=== PATIENT | female | born 1945 | race Caucasian/White ===

== ENCOUNTER 2016-12-03 09:11 | Emergency (ER) | payer BC ==
[2016-12-03 09:41] LABS: Urine Bilirubin Negative (NEGATIVE); Urine Blood Negative /ul (NEGATIVE); Urine Ketone Negative (NEGATIVE); Urine Nitrite Negative (NEGATIVE); Urine Protein 30 mg/dL (NEGATIVE); Urine Specific Gravity >=1.030 SP.GR. (1.005-1.010); Urine Urobilinogen Normal (NORMAL); Urine pH 5.5 pH (5.0-7.0)
[2016-12-03] MEDS ORDERED: ONDANSETRON HCL/PF 2 MG/ML VIAL IV ONE (09:42)
[2016-12-03] MEDS ORDERED: HYDROmorphone HCL 1 MG/ML DISP.SYRIN IV ONE (09:42)
--- NOTE | 2016-12-03 09:44 | ERNOTE ---
Abdominal HPI - Narrative Date of Service: 12/03/16 - General Chief Complaint: Back Pain Time Seen by Provider: 12/03/16 09:18 Source: patient Exam Limitations: no limitations - Immun/Allergies/Home Medications Allergies/Adverse Reactions: Allergies No Known Allergies Allergy (Verified 12/03/16 09:23) Home Medications: HOME MEDICATIONS Ca Cmb No.1/Vit D3/B-6/FA/B12 [Vitamin D3 1,000 Unit Tablet] 2 each PO DAILY 11/08 [Last Taken Unknown] Calcium Carb/Vit D3/Minerals [Calcium 1,200 mg Tablet Chew] 1 tab PO DAILY 09/27 [Last Taken Unknown] Pyridoxine HCl [Vitamin B-6] 200 mg PO DAILY 09/27/12 [Last Taken Unknown] Ascorbic Acid [Vitamin C] 1 tab PO DAILY #0 10/05/12 [Last Taken Unknown] Levothyroxine Sodium [Synthroid] 125 mcg PO QAM #0 tablet 10/05/12 [Last Taken Unknown] Polyvinyl Alcohol [Artificial Tears] 0 ml EACHEYE Q1H PRN #0 btl 10/05/12 [Last Taken Unknown] Cyclobenzaprine HCl [Flexeril] 5 mg PO TID PRN #12 tablet 12/03/16 [Last Taken Unknown] Ibuprofen [Motrin] 400 mg PO Q6H PRN #30 tab 12/03/16 [Last Taken Unknown] Magnesium Citrate 296 ml PO NOW #1 solution 12/03/16 [Last Taken Unknown] - Pain Score Pain Score #1 Pain Score: 7 - moderate to severe - History of Present Illness Narrative: 71-year-old white female complains of back pain/abdominal pain. Patient states her pain began about 1 week ago. She feels pain in both her mid and low back as well as her abdomen. She has loss of appetite. No vomiting diarrhea. No constipation. No hematuria. She was seen and evaluated and a primary care physician's office last Tuesday. She states she was told by the physician that she probably had a kidney stone. She states her urine did not show any abnormalities. The pain had improved with pain medication. Then the pain became again severe last night. There times and she has lower abdominal pain with it. No dysuria, urinary urgency or frequency. The pain as moderate severe. No history of kidney stones Review of Systems - Review of Systems Constitutional: Present: no symptoms reported. Absent: fever, chills EYE: Present: no symptoms reported ENT: Present: no symptoms reported Respiratory: Present: no symptoms reported. Absent: shortness of breath, cough , wheezing Cardiology: Present: no symptoms reported. Absent: chest pain, palpitations, edema Gastrointestinal/Abdominal: Present: abdominal pain, eating less, drinking less. Absent: nausea, vomiting, diarrhea, constipation Genitourinary: Present: no symptoms reported, See HPI. Absent: frequency, pain , dysuria, hematuria, decreased urinary output, discharge Musculoskeletal: Present: no symptoms reported Skin: Present: no symptoms reported Neurological: Present: no symptoms reported Endocrine: Present: no symptoms reported All Other Systems: All systems neg except as marked - Patient's Past Medical History Patient History - Medical: Hypothyroidism Patient History - Cardiac/Respiratory: No pertinent hx Patient History - Cancer: No Hx of Cancer Patient History - Surgical Procedures: Total Hip Replacement Patient History - Other: None - Social History Living Situations: home Psych History: No pertinent hx Physical Exam - Physical Exam General Appearance: Present: wd/wn, alert, no apparent distress Ears, Nose, Throat: Present: normal ENT inspection Neck: Present: normal inspection, nontender Respiratory: Present: no respiratory distress, normal breath sounds, no accessory muscle use, chest nontender, lungs clear Cardiovascular/Chest: Present: regular rate, rhythm, no murmur, normal peripheral pulses Gastrointestinal/Abdominal: Present: normal bowel sounds, tenderness, other - slight tenderness lower abdomen. Absent: distended, guarding, rebound Rectal Exam: Present: nontender, normal rectal tone. Absent: black stool, blood -streaked stool, fecal impaction, hemorrhoids Back Exam: Present: other - in with range of motion in the mid and low back. Extremity Exam: Present: normal inspection, no edema Neurological Exam: Present: alert, oriented, normal mood/affect, no motor/ sensory deficits Skin Exam: Present: normal color, warm/dry ED Progress - Results and Orders Patient's Lab Results:: I have reviewed the patient's lab results. - Vital Signs Patient's Vital Signs:: I have reviewed the patient's vital signs. Vital Signs: Vital Signs 12/03/16 09:17 Temperature 36.3 C L Pulse Rate 94 Respiratory 12 Rate Blood Pressure 124/58 O2 Sat by Pulse 98 Oximetry - CT/Ultrasound CT/Ultrasound Narrative: Reviewed CT scan as well as radiology report. - Progress/Reassessment Chief Complaint: Back Pain Progress:: Improved - Dilaudid IV given. Good relief of pain Plan - Plan Plan: Patient has other nonspecific findings on CT scan. There is discussion of panniculitis versus mesenteric gesture in. There is mesenteric nodes which could be indicative of mesenteric adenitis. I did discuss the case with our general surgeon informatics application analyst . He has reviewed the case and the CT findings. The appendix is slightly enlarged. There are no other associated findings to suggest appendicitis. Clinically do not think she has. However she was advised to return here if any time she develops focal pain or worsening. She did have a pulmonary nodule measured at 3 mm which will need to be further evaluated according to fleishner criteria per primary care physician. She has been taking some antacids which were demonstrated in her rectum on CT scan. She feels she slightly constipated. I will have her take one bottle of magnesium citrate when she gets home this morning. I discussed all this with her and she verbalizes understanding. Departure - Departure Clinical Impression: Back pain, Abdominal pain Disposition: Home self-care Condition: Stable Additional Instructions: Return to emergency department if at any time there is worsening of the pain, bloody stools, fever, vomiting or other problems. Otherwise follow-up with primary care physician. Will need outpatient follow-up for the pulmonary nodule. Follow-up with primary care physician on Tuesday. Referrals: Danii Canela MD [Primary Care Provider] - Prescriptions: Cyclobenzaprine HCl [Flexeril] 5 mg PO TID PRN #12 tablet PRN Reason: Pain Ibuprofen [Motrin] 400 mg PO Q6H PRN #30 tab PRN Reason: Pain Magnesium Citrate 296 ml PO NOW #1 solution
[2016-12-03] MEDS ORDERED: ONDANSETRON HCL/PF 2 MG/ML VIAL ONE (09:45)
[2016-12-03] MEDS ORDERED: HYDROmorphone HCL 1 MG/ML DISP.SYRIN ONE (09:45)
[2016-12-03 09:50] LABS: Urine Amorphous Sediment Many - 3+ (NONE-FEW); Urine Appearance Clear; Urine Bacteria TRACE; Urine Color Yellow; Urine RBC TRACE /hpf (0-5); Urine WBC TRACE /hpf (0-5)
[2016-12-03 09:55] LABS: Hematocrit 34.3 % (37.0-47.0); Hemoglobin 11.5 gm/dL (12.5-16.0); Mean Cell Volume 94.5 fl (78-100); Mean Corpuscular Hemoglobin 31.7 pg (27-31); Mean Corpuscular Hgb Conc 33.5 g/dl (32-36); Mean Platelet Volume 9.4 fl (6.0-9.5); Neutrophil # 5.8 K/mm3 (1.3-6.0); Neutrophil % 80.3 % (42-75.0); Platelet Count 240 K/mm3 (150-450); Red Blood Count 3.63 M/mm3 (4.2-5.4); Red Cell Distribution Width 11.4 % (11.5-14.0); White Blood Count 7.3 K/mm3 (4.0-10.5)
[2016-12-03 10:12] LABS: Albumin * 3.6 gm/dl (3.4-5.0); Anion Gap 14.5 mmol/L (6.8-13.8); BUN/Creatinine Ratio 18.8 (9.0-21.6); Bilirubin, Total 0.6 mg/dL (0.0-1.1); Ca. Corrected For Albumin 8.8 mg/dL (8.4-10.2); Calcium * 8.8 mg/dL (7.9-10.9); Carbon Dioxide 25.6 mmol/L (24-32.6); Potassium 4.1 mmol/L (3.4-4.6); Total Protein 7.5 gm/dL (6.2-8.2)
--- OUTSIDE RECORDS SUMMARY | 2016-12-03 10:14 | XMS REPORT | Continuity of Care Document ---
:1945 Author Organization [facility] ([facility]) Address [address] [place] [address] Phone [phone] Care Team Providers Name Role Phone Provider, No-Primary Care Primary Care Provider Unavailable Source Comments This disclosure is being made pursuant to the Care Everywhere program, applicable federal and state laws, and may not contain all informaitonavailable regarding this patient.[facility] ([facility]) Active Allergies and Adverse Reactions Not on File Current Medications Not on file Active Problems Not on file Social History Tobacco Use Types Packs/Day Years Used Date Never Assessed Plan of Care Health Maintenance Due Date Last Done Comments HCV Screening 1945 Hepatitis B Vaccine (1 of 3 - Primary Series) 1945 Tdap Vaccine 1956 Lipid Disorder Screening 1963 Td Vaccine 1963 Mammogram 1985 Colonoscopy 1995 Zoster Vaccine 2005 Osteoporosis Screening (DXA Bone Density) 2010 Pneumococcal Vaccine (1 of 2 - PCV13) 2010 Influenza Vaccine: Seasonal (#1) 04/26/2016 Results from Last 3 Months Not on file
[2016-12-03 11:53] VITALS: BP 94/56
== END 2016-12-03 12:22 | disposition home or self-care (01) ==
LOC: ER 09:11
DX: R10.9 Unspecified abdominal pain (principal); M54.9 Dorsalgia, unspecified; E03.9 Hypothyroidism, unspecified

== ENCOUNTER 2017-01-31 07:56 | Emergency (ER) | payer BC ==
--- OUTSIDE RECORDS SUMMARY | 2017-01-31 08:16 | XMS REPORT | Continuity of Care Document ---
:1945 Author Organization [facility] ([facility]) Address [address] [place] [address] Phone [phone] Care Team Providers Name Role Phone Provider, No-Primary Care Primary Care Provider Unavailable Source Comments This disclosure is being made pursuant to the Care Everywhere program, applicable federal and state laws, and may not contain all informaitonavailable regarding this patient.[facility] ([facility]) Active Allergies and Adverse Reactions Not [...]
[2017-01-31] MEDS ORDERED: oxyCODONE HCL/ACETAMINOPHEN 1 TAB TABLET PO ONE (08:56)
[2017-01-31 09:08] VITALS: BP 134/84
--- NOTE | 2017-01-31 09:11 | ERNOTE ---
Lower Extremity HPI - Narrative Date of Service: 01/31/17 - General Lower Extremities Pain: ankle: left Time Seen by Provider: 01/31/17 08:04 Source: patient Exam Limitations: no limitations - Immun/Allergies/Home Medications Allergies/Adverse Reactions: Allergies Allergy/AdvReac Type Severity Reaction Status Date / Time codeine Allergy Verified 01/31/17 08:03 Home Medications: HOME MEDICATIONS Ca Cmb No.1/Vit D3/B-6/FA/B12 [Vitamin D3 1,000 Unit Tablet] 2 each PO DAILY 11/08 [Last Taken Unknown] Calcium Carb/Vit D3/Minerals [Calcium 1,200 mg Tablet Chew] 1 tab PO DAILY 09/27 [Last Taken Unknown] Pyridoxine HCl [Vitamin B-6] 200 mg PO DAILY 09/27/12 [Last Taken Unknown] Ascorbic Acid [Vitamin C] 1 tab PO DAILY #0 10/05/12 [Last Taken Unknown] Levothyroxine Sodium [Synthroid] 125 mcg PO QAM #0 tablet 10/05/12 [Last Taken Unknown] Polyvinyl Alcohol [Artificial Tears] 0 ml EACHEYE Q1H PRN #0 btl 10/05/12 [Last Taken Unknown] Cyclobenzaprine HCl [Flexeril] 5 mg PO TID PRN #12 tablet 12/03/16 [Last Taken Unknown] Ibuprofen [Motrin] 400 mg PO Q6H PRN #30 tab 12/03/16 [Last Taken Unknown] Magnesium Citrate 296 ml PO NOW #1 solution 12/03/16 [Last Taken Unknown] oxyCODONE HCL/ACETAMINOPHEN [Percocet 5 MG/325 MG] 1 tab PO Q8H PRN #12 tablet 01/31/17 [Last Taken Unknown] - History of Present Illness Narrative: Patient presents to the ED for an ankle and foot injury. She relates that she had a spade fall and hit the dorsum of her ankle/foot yesterday. She has immediate pain here and swelling. The pain has worsened since yesterday and she feels like she cannot put any weight on it. No fevers. It hurts to move her ankle and toes. No other injuries. Relates she cannot bear weight as the pain is too bad. With rest pain better, sever with weight bearing. Occurred: yesterday Location of Incident: home Method of Injury: Reports: direct blow Modifying Factors - (Improves): Reports: rest Modifying Factors - (Worsens): Reports: movement, other - weight bearing Associated Symptoms: Reports: unable to bear weight. Denies: other injuries Other Injuries: Reports: none Subsequent Symptoms: Reports: other - hurts to move ankle and toes. Prior Treament: Denies: recently seen Review of Systems - Review of Systems Constitutional: Absent: fever Musculoskeletal: Present: See HPI Skin: Present: other - bruie, no laceration. Absent: rash Neurological: Present: other - toe numbness. - Patient's Past Medical History Patient History - Medical: Hypothyroidism Patient History - Cardiac/Respiratory: No pertinent hx Patient History - Cancer: No Hx of Cancer Patient History - Surgical Procedures: Total Hip Replacement Patient History - Other: None - Social History Living Situations: home Psych History: No pertinent hx Alcohol Use: none Drug Use: none Physical Exam - Physical Exam General Appearance: Present: alert, no apparent distress Respiratory: Present: no respiratory distress, lungs clear Cardiovascular/Chest: Present: regular rate, rhythm, normal peripheral pulses Peripheral Pulses: N=norm/S=strong/W=weak/B=bound/A=absent: Dorsalis-pedis (L): Normal Extremity Exam: Present: other - There is a bruise anterior left ankle. THer is swelling around this area. There is no suggestion of cellulitis or joint infection. There is pain distal tib fib, diffuse ankle and entire proximal foot. No gross instablility. Pain limits exam but no clear Achilles deficit. DP pulse noted. LT sensation is present. Motor exam difficult d/t pain. No compartment syndrome noted. There is a bruise present where she indicated the spade struck her foot/ankle. Neurological Exam: Present: other - Sensation to LT intact. Motor and tendon exam limited by pain but no clear acute gross deficits noted. Skin Exam: Present: warm/dry, other - no findings of cellulitis infection ED Progress - Vital Signs Patient's Vital Signs:: I have reviewed the patient's vital signs. Vital Signs: Vital Signs 01/31/17 08:00 Temperature 37.4 C Pulse Rate 86 Respiratory 12 Rate Blood Pressure 116/42 O2 Sat by Pulse 100 Oximetry - X-Ray X-Ray #1 X-Ray: foot Interpretation: Reviewed by me X-ray Comments: I reviewed images and official radiology report X-Ray #2 X-Ray: ankle Interpretation: Reviewed by me X-ray Comments: I reviewed images as well as official x-ray report - Progress/Reassessment Chief Complaint: Foot Injury/Pain Progress Note-Subjective: 01/31/17 09:04 I spoke with Chantel Solano who was on for ortho via nurse. Splint and office folllow -up recommended. She had traumatic injury yesterday that started her Sx. No fever. No compartment syndrome. No clear fracture. Nothing on exam would suggest cellulitis or septic arthritis. Clinically c/w local tissue injury from the imact of the spade. I discussed warning signs and reasons to return as well as the need for close f/u. 01/31/17 09:08 Patient states she can take percocet without difficulty. I informed her not to take Tramadol if taking percocet. Departure Clinical Impression: Ankle injury, Foot injury - Departure Disposition: Home self-care Condition: Stable Instructions: Cast or Splint Care, [id number] Additional Instructions: Follow-up with orthopedics as directed. Rest. Ice. Elevate. Splint for now. Return here for fever, increased pain, numbness, tingling, weakness or if your condition worsens or changes in any way. Do not take tramadol if taking Percocet. Referrals: Danii Canela MD [Primary Care Provider] - Prescriptions: oxyCODONE HCL/ACETAMINOPHEN [Percocet 5 MG/325 MG] 1 tab PO Q8H PRN #12 tablet PRN Reason: Pain
[2017-01-31] MEDS ORDERED: oxyCODONE HCL/ACETAMINOPHEN 1 TAB TABLET ONE (09:13)
== END 2017-01-31 09:22 | disposition home or self-care (01) ==
LOC: ER 07:56
PROC: 2W3TX1Z Immobilization of Left Foot using Splint (ICD-10-PCS; principal; 2017-01-31)
DX: M25.572 Pain in left ankle and joints of left foot (principal); X58.XXXA Exposure to other specified factors, initial encounter; Y93.9 Activity, unspecified; Y92.009 Unspecified place in unspecified non-institutional (private) residence as the place of occurrence of the external cause

== ENCOUNTER 2021-01-04 09:39 | Inpatient (IN) ==
[2021-01-04] MEDS ORDERED: NORMAL SALINE 1,000 ML IV ONE ×2 (09:51→12:52)
[2021-01-04] MEDS ORDERED: ACETAMINOPHEN 1,000 MG/100 ML BTL IV ONE (09:51)
[2021-01-04 10:07] LABS: Urine Bilirubin Negative (NEGATIVE); Urine Blood Negative /ul (NEGATIVE); Urine Ketone Negative (NEGATIVE); Urine Nitrite Negative (NEGATIVE); Urine Protein Negative (NEGATIVE); Urine Urobilinogen Normal (NORMAL)
[2021-01-04 10:14] LABS: Cocaine Ur Negative (NEGATIVE); Urine Barbiturate Negative (NEGATIVE); Urine Benzodiazepines Negative (NEGATIVE); Urine Opiates Negative (NEGATIVE); Urine PCP Negative (NEGATIVE)
[2021-01-04 10:17] LABS: Hematocrit 40.2 % (37.0-47.0); Mean Cell Volume 99.5 fl (78-100); Mean Corpuscular Hemoglobin 32.2 pg (27-31); Mean Corpuscular Hgb Conc 32.3 g/dl (32-36); Mean Platelet Volume 9.5 fl (8-12.5); Neutrophil # 4.8 K/mm3 (1.3-6.0); Neutrophil % 67.9 % (42-75.0); Platelet Count 244 K/mm3 (150-450); Red Blood Count 4.04 M/mm3 (4.2-5.4); Red Cell Distribution Width 12.2 % (11.5-14.0); White Blood Count 7.1 K/mm3 (4.0-10.5)
[2021-01-04 10:17] LABS: Urine THC Negative (NEGATIVE)
--- NOTE | 2021-01-04 10:18 | ERNOTE ---
Medical Problem HPI - Narrative Date of Service: 01/04/21 - General Chief Complaint: Altered Mental Status Time Seen by Provider: 01/04/21 09:47 Source: patient, family Exam Limitations: clinical condition - Immun/Allergies/Home Medications Allergies/Adverse Reactions: Allergies codeine Allergy (Verified 07/10/19 14:55) Home Medications: HOME MEDICATIONS Ca Cmb No.1/Vit D3/B-6/FA/B12 [Vitamin D3 1,000 Unit Tablet] 2 ea PO DAILY 09/27/12 [Last Taken Unknown] Calcium Carb/Vit D3/Minerals [Calcium 1,200 mg Tablet Chew] 1 tab PO DAILY 09/27/12 [Last Taken Unknown] Ascorbic Acid [Vitamin C] 1 tab PO DAILY #0 10/05/12 [Last Taken Unknown] Apixaban [Eliquis] 5 mg PO BID 01/04/21 [Last Taken Unknown] Levothyroxine Sodium [Synthroid] 150 mcg PO DAILY 01/04/21 [Last Taken Unknown] Meclizine HCl [Motion-Time] 25 mg PO TID 01/04/21 [Last Taken Unknown] Midodrine HCl 10 mg PO TID 01/04/21 [Last Taken Unknown] - History of Present History Narrative: Patient presents to the ED for altered mental status. She was last known normal last night. This am was confused and could not walk. Not herself at all. She denies any pain. Noted to have a fever here. Denies abdominal pain, cough, trouble breathing or other Sx. No headache, no apparent trauma. Has not had anything like this before. Timing: constant Severity: moderate Modifying Factors - (Improves): Present: other - nothing Modifying Factors - (Worsens): Present: other - nothing Review of Systems - Narrative Narrative: ROS unobtainable in entirety d/t patient condition/confusion. Medical History (Last Reviewed 01/04/21 @ 10:16 by Rico Webster MD) Multiple system atrophy Osteoporosis Pulmonary embolism Subcapital fracture of femur Onset Date: Unknown L hip = S/P closed reduction Hypothyroidism Onset Date: Unknown Osteoarthritis Onset Date: Unknown spine Surgical History: Surgical History (Last Reviewed 01/04/21 @ 10:16 by Rico Webster MD) History of kyphoplasty T8 Fingernail problem Onset Date: ~2011 Fingernail/Toenail removal. Saathoff toe History of carpal tunnel release Onset Date: Unknown History of hip surgery Onset Date: ~09/27/12 closed reduction of left hip with percutaneous pinning. Dr. Albert Hx of LASIK Onset Date: Unknown Family History: Family History (Last Reviewed 01/04/21 @ 10:16 by Rico Webster MD) Mother Glaucoma Hiatal hernia Father No problems noted. 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 States no pain but not very forthcoming to questioning. Generalized weakness noted. Cannot sit up on her own.\ Head Exam: Present: normal inspection, no evidence of injury Eye Exam: Normal inspection: bilateral, PERRL: bilateral Ears, Nose, Throat: Present: normal ENT inspection Neck: Present: normal inspection, other - no meningeal signs Respiratory: Present: no respiratory distress, normal breath sounds, no accessory muscle use, lungs clear Cardiovascular/Chest: Present: regular rate, rhythm Gastrointestinal/Abdominal: Present: normal bowel sounds, nontender, nondistended, soft Back Exam: Absent: CVA tenderness (R), CVA tenderness (L) Extremity Exam: Present: other - no deformity Neurological Exam: Present: alert, other - significant generalized weakness noted. She is slow to accomplish movements but will hold all extremities off the bed against gravity. Mild left finger to nose dysmetria but effort is an issue, possible subtle left leg weakness c/w right but also compromised exam. Skin Exam: Present: normal color, warm/dry Progress - Results and Orders Patient's Lab Results:: I have reviewed the patient's lab results. - Vital Signs Patient's Vital Signs:: I have reviewed the patient's vital signs. - EKG EKG #1 EKG read: Interp. by me EKG Comments: Computer rads as a fib but I feel this is NSR. Rate 89. Non-specific, no STEMI. - X-Ray X-Ray #1 X-Ray: chest Interpretation: Interp. by me X-ray Comments: No real time radiology reads. I personally reviewed CXR images as well as official radiology report. - CT/Ultrasound CT/Ultrasound Narrative: I reviewed official radiology report for head CT, concern for possible old or subacute infarct. - Progress/Reassessment Progress Note-Subjective: 01/04/21 12:57 Patient has low grade fever without clear etiology. Clinically no headache, nothing to suggest meningitis or encephalitis clinically. There is possible subacute stroke on CT and she will need MRI. LP not indicated at this time given no headache and she is on oral anticoagulants. No source for low grade fever yet found. Rocephin had been given prophylactally. She is out of any stroke therapeutic window, last well yesterday. I discussed the case with Dr Lin who will admit for further evaluation and management. 01/04/21 12:58 01/04/21 12:59 Departure Clinical Impression: Fever, Generalized weakness, AMS (altered mental status), Abnormal head CT - Departure Disposition: Still a patient Condition: Fair
[2021-01-04 10:23] LABS: Urine Appearance Clear (CLEAR); Urine Bacteria TRACE; Urine Color Yellow; Urine Mucus TRACE; Urine RBC None Seen /hpf (0-5); Urine WBC None Seen /hpf (0-5)
[2021-01-04 10:35] LABS: Troponin I Less than 0.017 ng/mL (0.00-0.10)
[2021-01-04 10:38] LABS: ALT 49 U/L (19-67); AST 39 U/L (0-48); Albumin * 4.4 gm/dl (3.4-5.0); Alkaline Phosphatase * 87 U/L (50-170); Anion Gap 11.4 mmol/L (6.8-13.8); BUN/Creatinine Ratio 19.1 (9.0-21.6); Bilirubin, Total 1.1 mg/dL (0.0-1.1); Blood Urea Nitrogen 22 mg/dL (3-23); Ca. Corrected For Albumin 9.3 mg/dL (8.4-10.2); Calcium * 9.9 mg/dL (7.9-10.9); Carbon Dioxide 29.3 mmol/L (24-32.6); Chloride 99 mmol/L (97-106); Glucose * 93 mg/dL (70-110); Lipase 156 U/L (73-393); Potassium 4.7 mmol/L (3.4-4.6); Sodium 135 mmol/L (132-142); TSH * 6.546 uIU/mL (0.358-3.74); Total Protein 8.7 gm/dL (6.2-8.2)
[2021-01-04] MEDS ORDERED: cefTRIAXone SODIUM 1,000 MG/100 ML BAG IV ONE (12:58)
--- NOTE | 2021-01-04 16:34 | HP ---
Chief Complaint - Chief Complaint Date of Service: 01/04/21 Time of Service: 16:34 Chief Complaint: AMS History of Present Illness: 75 year old with hypothyroidism brought into the ER by her daughter who states shehas not been acting herself lately. ER work out was fairly unremarkable. Labs all WNL aside from an elevated TSH. CT of her head had significant motion artifact but commented on possible old infarct which was not seen on an MRI 6 months ago. She was admitted for simple observation. When evaluated in her room, she was laying sidewise in her bed. She denied any issues and is unsure as to why she is here. SHe states that she feels fine. Her daughter was not available. She was A&O x2 but otherwise neurologically intact. Denied any symptoms at all. Mentioned in CT report that she may need an MRI of her brain due to changes seen in her CT scan that was not there previously there. Currently NPO Medical History (Last Reviewed 01/04/21 @ 10:16 by Rico Webster MD) Multiple system atrophy Osteoporosis Pulmonary embolism Subcapital fracture of femur Onset Date: Unknown L hip = S/P closed reduction Hypothyroidism Onset Date: Unknown Osteoarthritis Onset Date: Unknown spine Surgical History: Surgical History (Last Reviewed 01/04/21 @ 10:16 by Rico Webster MD) History of kyphoplasty T8 Fingernail problem Onset Date: ~2011 Fingernail/Toenail removal. Saathoff toe History of carpal tunnel release Onset Date: Unknown History of hip surgery Onset Date: ~09/27/12 closed reduction of left hip with percutaneous pinning. Dr. Albert of [facility] Onset Date: Unknown Family History: Family History (Last Reviewed 01/04/21 @ 10:16 by Rico Webster MD) Mother Glaucoma Hiatal hernia Father No problems noted. 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 Highest level of school completed/degree received: high school graduate Service: No Tobacco: Smoking Status: Never smoker Alcohol: alcohol intake: current alcohol intake frequency: a few times a month Substance Use: substance use type: does not use Dietary Habits: caffeine: Yes Review Of Systems (GEN) - Review of Systems Generalized/Overall Review: Absent: Weakness, Chills, Fever EENTM: Present: No Symptoms Reported Respiratory: Present: No Symptoms Reported Cardiac: Present: No Symptoms Reported Abdominal: Present: No Symptoms Reported Genitourinary: Present: No Symptoms Reported Musculoskeletal: Present: No Symptoms Reported Neurological: Absent: Headache, Numbness, Tingling, Weakness Skin: Present: No Symptoms Reported Endocrine: Present: No Symptoms Reported Immunizations: IMMUNIZATION HX Immunizations Up to Date Yes History of Influenza Vaccine No Hx Pneumococcal Vaccination No Allergies/Adverse Reactions: Allergies Allergy/AdvReac Type Severity Reaction Status Date / Time codeine Allergy Verified 07/10/19 14:55 Home Medications: HOME MEDICATIONS Apixaban [Eliquis] 5 mg PO BID 01/04/21 [Last Taken Unknown] Ascorbic Acid [Vitamin C] 1,000 mg PO DAILY 01/04/21 [Last Taken Unknown] Calcium Carbonate [Calcium] 1,000 mg PO DAILY 01/04/21 [Last Taken Unknown] Cholecalciferol [Vitamin D] 3,000 unit PO DAILY 01/04/21 [Last Taken Unknown] Ferrous Sulfate [Iron] 325 mg PO DAILY 01/04/21 [Last Taken Unknown] Levothyroxine Sodium [Synthroid] 150 mcg PO DAILY 01/04/21 [Last Taken Unknown] Meclizine HCl [Motion-Time] 25 mg PO TID 01/04/21 [Last Taken Unknown] Midodrine HCl 5 mg PO TID 01/04/21 [Last Taken Unknown] [place]-3S/Dha/Epa/Fish Oil [Fish Oil 1,200 mg Softgel] 1 ea PO HS 01/04/21 [Last Taken Unknown] Sennosides [Senokot] 2 tab PO HS 01/04/21 [Last Taken Unknown] Exam - Exam Vital Signs: Vital Signs - Last Taken Temp 37.4 C 01/04/21 13:42 Pulse 87 01/04/21 13:42 Resp 16 01/04/21 13:42 BP 177/99 H 01/04/21 13:42 Pulse Ox 100 01/04/21 13:42 Constitutional: Present: Alert, Oriented x3, Cooperative, Elderly ENT Exam: Present: hearing grossly normal Eye Exam: bilateral eye: normal inspection, EOMI Neck: Present: non-tender, supple Back Exam: Present: normal inspection Respiratory: Present: lungs clear, normal breath sounds Cardiovascular/Chest: Present: regular rate, rhythm, no murmur Abdomen: Present: soft, nontender, nondistended Skin Exam: Present: normal color, warm/dry Appearance: Present: appropriate appearance, neat. Absent: appropriate insight - limited insight, unsure as to why she is here but denies illness. slightly argumentative with me when talking about how she feels Eye contact: Present: cooperative, good eye contact, normal speech Thoughts: Present: normal thought pattern, normal mood /affect Diagnostic Studies: Abnormal Lab Results 01/04/21 01/04/21 01/04/21 Range/Units 10:00 10:00 10:00 RBC 4.04 L (4.2-5.4) M/mm3 MCH 32.2 H (27-31) pg Potassium 4.7 H (3.4-4.6) mmol/L Est GFR (Non-Af Amer) 49 L D (60-130) mL/min Total Protein 8.7 H (6.2-8.2) gm/dL Procalcitonin Less than 0.05 L (0.05-0.50) ng/mL TSH 6.546 H (0.358-3.74) uIU/mL Laboratory Results WBC 7.1 K/mm3 (4.0-10.5) 01/04/21 10:00 RBC 4.04 M/mm3 (4.2-5.4) L 01/04/21 10:00 Hgb 13.0 gm/dL (12.5-16.0) 01/04/21 10:00 Hct 40.2 % (37.0-47.0) 01/04/21 10:00 MCV 99.5 fl (78-100) 01/04/21 10:00 MCH 32.2 pg (27-31) H 01/04/21 10:00 MCHC 32.3 g/dl (32-36) 01/04/21 10:00 RDW 12.2 % (11.5-14.0) 01/04/21 10:00 Plt Count 244 K/mm3 (150-450) 01/04/21 10:00 MPV 9.5 fl (8-12.5) 01/04/21 10:00 Immature Gran % (Auto) 0.30 % (0.001-0.429) 01/04/21 10:00 Immature Gran # (Auto) 0.02 K/mm3 (0.000-0.0310) 01/04/21 10:00 Neutrophils % 67.9 % (42-75.0) 01/04/21 10:00 Lymphocytes % 23.7 % (20-51) 01/04/21 10:00 Monocytes % 6.8 % (0.0-9) 01/04/21 10:00 Eosinophils % 1.0 % (0.0-3.0) 01/04/21 10:00 Basophils % 0.3 % (0.0-1.0) 01/04/21 10:00 Nucleated RBC % 0.0 k/mm3 (0-1) 01/04/21 10:00 Neutrophils # 4.8 K/mm3 (1.3-6.0) 01/04/21 10:00 Lymphocytes # 1.67 k/mm3 (1.5-3.5) 01/04/21 10:00 Monocytes # 0.5 k/mm3 (0.0-1.0) 01/04/21 10:00 Eosinophils # 0.1 k/mm3 (0.0-0.7) 01/04/21 10:00 Absolute Basophils 0.0 k/mm3 (0.0-0.1) 01/04/21 10:00 Sodium 135 mmol/L (132-142) 01/04/21 10:00 Plasma Sodium 135 mmol/L (130-142) 01/04/21 10:00 Potassium 4.7 mmol/L (3.4-4.6) H 01/04/21 10:00 Chloride 99 mmol/L (97-106) 01/04/21 10:00 Carbon Dioxide 29.3 mmol/L (24-32.6) 01/04/21 10:00 Anion Gap 11.4 mmol/L (6.8-13.8) 01/04/21 10:00 BUN 22 mg/dL (3-23) 01/04/21 10:00 Creatinine 1.15 mg/dL (0.4-1.4) 01/04/21 10:00 Est GFR (Non-Af Amer) 49 mL/min (60-130) L D 01/04/21 10:00 BUN/Creatinine Ratio 19.1 (9.0-21.6) 01/04/21 10:00 Random Glucose 93 mg/dL (70-110) 01/04/21 10:00 Lactic Acid, Venous 1.1 mmol/L (0.4-2.0) 01/04/21 10:00 Calcium 9.9 mg/dL (7.9-10.9) 01/04/21 10:00 Calcium Adj for Albumin 9.3 mg/dL (8.4-10.2) 01/04/21 10:00 Total Bilirubin 1.1 mg/dL (0.0-1.1) 01/04/21 10:00 AST 39 U/L (0-48) 01/04/21 10:00 ALT 49 U/L (19-67) 01/04/21 10:00 Alkaline Phosphatase 87 U/L (50-170) 01/04/21 10:00 Ammonia Less than 17.0 mcmol/L (11-35) 01/04/21 10:00 Troponin I Less than 0.017 ng/mL (0.00-0.10) 01/04/21 10:00 Total Protein 8.7 gm/dL (6.2-8.2) H 01/04/21 10:00 Albumin 4.4 gm/dl (3.4-5.0) 01/04/21 10:00 Lipase 156 U/L (73-393) 01/04/21 10:00 Procalcitonin Less than 0.05 ng/mL (0.05-0.50) L 01/04/21 10:00 TSH 6.546 uIU/mL (0.358-3.74) H 01/04/21 10:00 Urine Color Yellow 01/04/21 10:02 Urine Appearance Clear (CLEAR) 01/04/21 10:02 Urine pH 7.0 pH (5.0-7.0) 01/04/21 10:02 Ur Specific [place] 1.020 SP.GR. (1.005-1.010) 01/04/21 10:02 Urine Protein Negative mg/dL (NEGATIVE) 01/04/21 10:02 Urine Glucose (UA) Negative mg/dL (NEGATIVE) 01/04/21 10:02 Urine Ketones Negative mg/dL (NEGATIVE) 01/04/21 10:02 Urine Blood Negative /ul (NEGATIVE) 01/04/21 10:02 Urine Nitrate Negative (NEGATIVE) 01/04/21 10:02 Urine Bilirubin Negative mg/dl (NEGATIVE) 01/04/21 10:02 Urine Urobilinogen Normal EU/dl (NORMAL) 01/04/21 10:02 Ur Leukocyte Esterase Negative /ul (NEGATIVE) 01/04/21 10:02 Urine RBC None seen /hpf (0-5) 01/04/21 10:02 Urine WBC None seen /hpf (0-5) 01/04/21 10:02 Ur Epithelial Cells 0-5 /hpf (0-5) 01/04/21 10:02 Urine Bacteria Trace (NONE) 01/04/21 10:02 Urine Mucus Trace (NONE) 01/04/21 10:02 Urine Culture Comments No culture indicated 01/04/21 10:02 Urine Opiates Screen Negative (NEGATIVE) 01/04/21 10:02 Barbiturate Screen Negative (NEGATIVE) 01/04/21 10:02 Ur Phencyclidine Scrn Negative (NEGATIVE) 01/04/21 10:02 Urine Amphetamine Negative (NEGATIVE) 01/04/21 10:02 U Benzodiazepines Scrn Negative (NEGATIVE) 01/04/21 10:02 Urine Cocaine Screen Negative (NEGATIVE) 01/04/21 10:02 Urine Marijuana (THC) Negative (NEGATIVE) 01/04/21 10:02 Influenza Type A Ag Negative (NEGATIVE) 01/04/21 10:00 Influenza Type B Ag Negative (NEGATIVE) 01/04/21 10:00 SARS-CoV-2 (PCR) Not detected (NotDetected) 01/04/21 10:27 Group A Strep Rapid Negative (NEGATIVE) 01/04/21 10:27 Assessment/Plan - Narrative Narrative: Patient here for AMS per family. Family not available to discuss condition. Patient denies any issues and appears to be with it though she is a little confused. Don't know what her baseline cognition is but she just seems a little off but no other neurological deficits. Will order bedside swallow test and resume diet and meds if she passes. Possible MRI tomorrow but again unsure what we are missing here. Will follow up with her daughter in the am. SHe has elevated BP which we are not treating at this time. Permissive HTN ok due to concern for possible TIA though again no deficits noted. No repeat blood work in the am. SCDs on while in bed. She is on eliquis. Meds restarted since she passed bedside swallow. PT and OT to evaluate tomorrow. Nurse to call with questions or concerns. - Assessment/Plan (1) AMS (altered mental status) Problem: Acute (2) Hypothyroidism Problem: Chronic Qualifiers: Hypothyroidism type: acquired Qualified Code(s): E03.9 - Hypothyroidism, u nspecified (3) CRF (chronic renal failure) Problem: Chronic Qualifiers: Chronic kidney disease stage: stage 3 (moderate) (4) Elevated blood pressure reading Problem: Acute
[2021-01-04] MEDS: APIXABAN 5 MG TABLET PO SCH (20:58)
[2021-01-05] MEDS ORDERED: LEVOTHYROXINE SODIUM 100 MCG TABLET PO SCH (07:00)
[2021-01-05] MEDS: LEVOTHYROXINE SODIUM 150 MCG TABLET PO SCH (08:21)
[2021-01-05] MEDS: MIDODRINE HCL 2.5 MG TABLET PO SCH ×3 (08:21→16:58)
[2021-01-05] MEDS: APIXABAN 5 MG TABLET PO SCH (08:22)
--- NOTE | 2021-01-05 09:45 | PN ---
Subjective - Date and Time Seen Date: 01/05/21 Time: 09:45 Subjective Narrative: Report from PT states she was unable to walk straight, and repeatedly veered to the right. She reports being able to eat, drink, and no difficulty voiding. Objective - Review of Systems Generalized/Overall Review: Denies: Fever Respiratory: Denies: Cough Abdominal: Denies: Constipation Genitourinary Symptoms: Reports: No Symptoms Reported - Vitals Vitals: Last Vital Signs Temp 36.3 C 01/05/21 07:14 Pulse 91 01/05/21 07:14 Resp 18 01/05/21 07:14 BP 128/68 01/05/21 07:14 Pulse Ox 94 01/05/21 07:14 - Abnormal Lab Findings Abnormal Lab Findings: Abnormal Lab Results 01/04/21 01/04/21 01/04/21 Range/Units 10:00 10:00 10:00 RBC 4.04 L (4.2-5.4) M/mm3 MCH 32.2 H (27-31) pg Potassium 4.7 H (3.4-4.6) mmol/L Est GFR (Non-Af Amer) 49 L D (60-130) mL/min Total Protein 8.7 H (6.2-8.2) gm/dL Procalcitonin Less than 0.05 L (0.05-0.50) ng/mL TSH 6.546 H (0.358-3.74) uIU/mL - Exam Constitutional: Present: No distress, Other - states "October" as month. Oriented to self and place., Elderly, Thin and frail Respiratory: Present: lungs clear, normal breath sounds, no respiratory distress Cardiovascular/Chest: Present: regular rate, rhythm Abdomen: Absent: nontender Extremity: Absent: lower extremity edema Neurologic: Present: other - unable to perform rapid alternating upper arm movements, will touch my hand with [id number] but not fingertip, does not move ankle anterior to opposite knee, does not follow all commands. moves very slowly and is slumped in chair Eye contact: Present: good eye contact Assessment/Plan Plan Narrative: MSA from neurology - Problems/Diagnosis (1) Encephalopathy Problem: Acute Narrative: unclear etiology. Ddx includes CVA, dementia, hypoxia, infection, electrolyte abnormality, medication side effect, cardiac source. She was febrile initially in the ED, and has now been afebrile for 24 hours. Blood culture is negative this far. UA normal, COVID negative. CXR did not show acute process. WBC & glucose normal, ammonia, troponin, lactate not elevated, she's oxygenating in the 90's on room air. Toxicology negative. No significant electrolyte abnormalities. CT head had motion artifact, but showed possible low attenuation in parieto-occipital lobe, and subsequent MRI was normal. There is a chance she may have had an ischemic CVA that is not yet visible on imaging, however she is 24 hour out so this is less likely. Speech eval pending. Discussed with daughter, who asked if the MRI was compared to the MRI done at [facility] last month. She's being investigated with possible MSA by her neurologist, Dr. Cooper. Had a fractured left shoulder in September, and she's not done well since then. She's lost muscle mass and could not do PT. She's not losing weight, but she's not good at eating. She usually knows what's going on, and usually does not slump. Gait has been a bit shorter. Also has orthostatic hypotension. Had something like this previously, but not this severe. Would like another day of physical and speech therapy to help determine DC planning, to see if she can return home. This may be a manifestation of advancing MSA. (2) Abnormal head CT Problem: Acute (3) Multiple system atrophy Problem: Suspected (4) Hypothyroidism Problem: Chronic Qualifiers: Hypothyroidism type: acquired Qualified Code(s): E03.9 - Hypothyroidism, unspecified
--- NOTE | 2021-01-05 11:49 | PN ---
Winnie Note - Interim Date: 01/05/21 Time: 11:49 Narrative: 01/05/21 11:49 Will continue rocephin and hold eliquis for LP tomorrow. Can obtain EEG if she has not improved.
[2021-01-06] MEDS: LEVOTHYROXINE SODIUM 150 MCG TABLET PO SCH (06:27)
[2021-01-06] MEDS: MIDODRINE HCL 2.5 MG TABLET PO SCH ×3 (08:25→16:05)
[2021-01-06 10:25] LABS: Hematocrit 37.4 % (37.0-47.0); Hemoglobin 12.1 gm/dL (12.5-16.0); Mean Cell Volume 100.3 fl (78-100); Mean Corpuscular Hemoglobin 32.4 pg (27-31); Mean Corpuscular Hgb Conc 32.4 g/dl (32-36); Mean Platelet Volume 9.5 fl (8-12.5); Neutrophil # 3.3 K/mm3 (1.3-6.0); Platelet Count 210 K/mm3 (150-450); Red Blood Count 3.73 M/mm3 (4.2-5.4); Red Cell Distribution Width 12.1 % (11.5-14.0); White Blood Count 5.7 K/mm3 (4.0-10.5)
[2021-01-06 10:55] LABS: Albumin * 3.7 gm/dl (3.4-5.0); Anion Gap 9.9 mmol/L (6.8-13.8); BUN/Creatinine Ratio 25.5 (9.0-21.6); Bilirubin, Total 0.5 mg/dL (0.0-1.1); Calcium * 9.1 mg/dL (7.9-10.9); Carbon Dioxide 28.3 mmol/L (24-32.6); Potassium 4.2 mmol/L (3.4-4.6); Total Protein 7.5 gm/dL (6.2-8.2)
--- NOTE | 2021-01-06 18:04 | PN ---
Subjective - Date and Time Seen Date: 01/06/21 Time: 17:43 Subjective Narrative: Veronika had a good night with out any acute complications. Patient vital signs remained stable and she is afebrile. She is making progress with her mentation and she had significant provement in her ambulation and conversational skills. She was pleasant to talk with today though she still is slightly confused. She answers questions appropriately. She denies headache, neck pain, fever or chills, nausea or vomiting. Repeat blood work today showed her to have normal CBC, normal procalcitonin, and normal CHEM panel. MRI reviewed again and did not show any acute intracranial process or ischemic events. Plan was for patient to be off of her Eliquis for possible lumbar puncture tomorrow but after evaluating the patient today I do not think this is appropriate or needed as she has no signs of meningitis. We will need to discuss this with her daughter before any decisions are made. EEG will be ordered today. Objective - Review of Systems Generalized/Overall Review: Reports: No Symptoms Reported EENTM: Reports: No Symptoms Reported Respiratory: Denies: Cough, Shortness of Breath Cardiac: Denies: Chest Pain, Edema Abdominal: Denies: Nausea, Vomiting Genitourinary Symptoms: Reports: No Symptoms Reported Musculoskeletal Complaints: Reports: No Symptoms Reported Neurological: Denies: Headache, Numbness, Tingling, Weakness Skin: Reports: No Symptoms Reported Endocrine: Reports: No Symptoms Reported - Vitals Vitals: Last Vital Signs Temp 37 C 01/06/21 14:34 Pulse 83 01/06/21 14:34 Resp 20 01/06/21 14:34 BP 109/52 01/06/21 14:34 Pulse Ox 96 01/06/21 14:34 - Abnormal Lab Findings Abnormal Lab Findings: Abnormal Lab Results 01/06/21 01/06/21 01/06/21 Range/Units 10:11 10:11 10:11 RBC 3.73 L (4.2-5.4) M/mm3 Hgb 12.1 L (12.5-16.0) gm/dL MCV 100.3 H (78-100) fl MCH 32.4 H (27-31) pg Monocytes % 9.1 H (0.0-9) % Eosinophils % 3.5 H (0.0-3.0) % BUN 28 H (3-23) mg/dL Est GFR (Non-Af Amer) 51 L (60-130) mL/min BUN/Creatinine Ratio 25.5 H (9.0-21.6) Procalcitonin Less than 0.05 L (0.05-0.50) ng/mL - Exam Constitutional: Present: Alert, Cooperative, Elderly. Absent: Oriented x3 - X2 ENT Exam: Present: hearing grossly normal Neck: Present: non-tender, full range of motion, supple Respiratory: Present: lungs clear, normal breath sounds, no respiratory distress Cardiovascular/Chest: Present: regular rate, rhythm, no murmur Abdomen: Present: soft, nontender, nondistended Extremity: Present: non-tender. Absent: lower extremity edema Skin Exam: Present: normal color, warm/dry Neurologic: Present: novelty maker II-XII nml as tested, no motor/sensory deficits, alert, oriented x 3, abnormal gait - Initially had some left-sided neglect but this has improved significantly, minimal today seen with ambulation. Absent: facial droop, motor weakness, sensory deficit, dizzy/light-headedness Appearance: Present: appropriate appearance, impaired insight - Significantly improved though compared to day of admission Eye contact: Present: cooperative, good eye contact, normal speech Thoughts: Present: normal mood /affect. Absent: normal thought pattern - Still some confusion with where she is and what is going on, definitely not safe to return home by herself at this time for making significant progress Assessment/Plan Plan Narrative: Vincent is a 75-year-old female who prior to this weekend was independent with all ADLs and lives alone. Family lives close and checks on her frequently, noticed acute mentation changes and profound weakness which is why she came to the hospital. She has made significant progress in her weakness as well as her mentation over the last 2 days. She is alert and oriented x2 and still struggles with where she is and why she is here but otherwise denies any symptoms including no headache, no fever chills, no dizziness, no neurological deficits whatsoever, no neck pain, no nausea or vomiting, no diarrhea or constipation. CT scan of her head had significant motion artifact and so MRI was recommended due to possible ischemic event but MRI did not show any of this and was unchanged compared to previous MRI. Unsure as what the cause of her acute neurological deficits upon admission and residual deficits that she has now is from that I do not think it is infectious in nature. Plan was for her to be off Eliquis for the next 2 days but I called and discussed her history and her presentation with her daughter who brought her to the hospital on Tuesday. I had not had a chance to talk with her prior to today. After reviewing her history and her acute illness, I was able to explain my concerns with lumbar puncture which I do not is appropriate this time. Again patient has absolutely no signs of meningitis aside from this confusion and initial gait disturbance on the left. Patient has since improved from her confusion and she has no left-sided neglect at this time. Her ambulation is improved significantly and patient is now stopping and reading signs located throughout the hospital. Her conversation is more appropriate and she responds to questions as expected. Her lab values do not indicate infection including normal white blood cell count without shift, normal procalcitonin. Her MRI was unremarkable for any acute intracranial pathology which will initially show meningitis but taken with the rest of her clinical picture and her improvement I do not think this is likely. I can confidently say that she does not have a bacterial meningitis and whether or not she has a viral meningitis is yet to be determined. With her improvement though not on appropriate covering antibiotics for meningitis as well as no antiviral medications, this makes meningitis very low on my suspicions. The most likely she had either a very small CVA or is recovering from a TIA. Her vital signs are stable though, her blood pressures within normal limits uncontrolled, and she has been afebrile since her initial presentation. She is not taking antipyretics. After explaining this with her daughter, we both came to the conclusion that lumbar puncture would be inappropriate for her at this time and we will wait and see how she continues to improve during her stay here. If at any point she has changes in her presentation acutely, changes in her infectious markers, becomes febrile, then will likely get a lumbar puncture for evaluation. This is recommended by her neurologist prior to her improvement and so I think holding off on this is the appropriate measure. Her daughter was in agreement with this. Also asked why she was on Eliquis and her daughter says she has had a one-time pulmonary embolus, causation unknown. She has been on Eliquis now for close to 2 years. I asked why this was not discontinued after 6 months and the daughter states that she was told she needed to be on indefinitely. We will review her records and see if there is something missing but I do not understand why this is the case. 6 months should have been probably acceptable for treatment of a first-time clot formation especially where she has no history of blood dyscrasias whatsoever. Both me and the daughter again agree that it would be best for her to get her off of Eliquis due to her risk of falling and having bleeding complications. Likely she will be started on aspirin and Plavix for TIA prevention in the future as well as a statin medication. We will start a statin today. Otherwise we will continue current treatment plan. We will stop Rocephin as I am unsure as to what we are treating at this time and her cultures have come back negative for any source of infection. We will continue to monitor her vital signs and repeat blood work in the morning. Continue with therapy as ordered. Adjusted her levothyroxine as the only lab abnormality was an elevated TSH. The study to be repeated in 6 weeks. EEG ordered per her neurologist request which again I think is appropriate as she may be having absence seizures with a few staring episodes that have been witnessed. No history of seizure disorder previously. If her EEG is positive then will consider lumbar puncture as infection can lead to seizure problems. We will keep the daughter up-to-date on her condition. Nurse to call with questions or concerns. 1.5 hours of critical care time spent with patient today, spent discussing the case with her daughter, reviewing her medical history, and adjusting her darshan tment plan. - Problems/Diagnosis (1) AMS (altered mental status) Problem: Acute (2) Hypothyroidism Problem: Chronic Qualifiers: Hypothyroidism type: acquired Qualified Code(s): E03.9 - Hypothyroidism, unspecified (3) CRF (chronic renal failure) Problem: Chronic Qualifiers: Chronic kidney disease stage: stage 3 (moderate) (4) Elevated blood pressure reading Problem: Acute (5) Chronic anticoagulation Problem: Acute
[2021-01-06] MEDS: ROSUVASTATIN CALCIUM 10 MG TABLET PO SCH (20:51)
[2021-01-06] MEDS: APIXABAN 5 MG TABLET PO SCH (20:53)
[2021-01-06] MEDS ORDERED: ASPIRIN 325 MG TABLET.DR PO ONE (21:00)
[2021-01-06] MEDS ORDERED: CLOPIDOGREL BISULFATE 75 MG TABLET PO ONE (21:00)
[2021-01-07] MEDS: LEVOTHYROXINE SODIUM 175 MCG TABLET PO SCH (08:30)
[2021-01-07] MEDS: MIDODRINE HCL 2.5 MG TABLET PO SCH ×3 (08:32→16:52)
[2021-01-07] MEDS ORDERED: CLOPIDOGREL BISULFATE 75 MG TABLET PO SCH (09:00)
[2021-01-07] MEDS ORDERED: ASPIRIN 325 MG TABLET.DR PO SCH (09:00)
[2021-01-07 11:15] LABS: Hemoglobin 12.2 gm/dL (12.5-16.0); Mean Cell Volume 99.7 fl (78-100); Mean Corpuscular Hgb Conc 32.1 g/dl (32-36); Mean Platelet Volume 9.5 fl (8-12.5); Neutrophil # 3.4 K/mm3 (1.3-6.0); Neutrophil % 62.3 % (42-75.0); Platelet Count 223 K/mm3 (150-450); Red Blood Count 3.81 M/mm3 (4.2-5.4); White Blood Count 5.5 K/mm3 (4.0-10.5)
[2021-01-07 11:32] LABS: Albumin * 3.9 gm/dl (3.4-5.0); Anion Gap 13.6 mmol/L (6.8-13.8); Bilirubin, Total 0.3 mg/dL (0.0-1.1); Calcium * 9.2 mg/dL (7.9-10.9); Carbon Dioxide 28.1 mmol/L (24-32.6); Potassium 4.7 mmol/L (3.4-4.6); Total Protein 7.9 gm/dL (6.2-8.2)
[2021-01-07] MEDS: APIXABAN 5 MG TABLET PO SCH ×2 (13:58→20:45)
[2021-01-07] MEDS ORDERED: diphenhydrAMINE HCL 25 MG CAPSULE PO ONE (18:12)
[2021-01-07] MEDS: ROSUVASTATIN CALCIUM 10 MG TABLET PO SCH (20:14)
[2021-01-07] MEDS ORDERED: ZOLPIDEM TARTRATE 5 MG TABLET PO ONE (21:00)
[2021-01-07] MEDS ORDERED: MELATONIN 3,000 MCG TABLET PO ONE (21:00)
--- NOTE | 2021-01-07 23:57 | PN ---
Subjective - Date and Time Seen Date: 01/07/21 Time: 11:22 Subjective Narrative: Patient is more confused today compared to yesterday. She was making dignificsnt improvement but looks like she has regressed today. She is confused, hallucinating . She still denies pain, headache, chest pain, N/V. WBC improved. Her vitals are stable. Objective Objective Narrative: She is confused. Unsure how accurate her responses are. She denies pain, discomfort, N/V/F/C. NO heasdache, neck pain, dizziness. - Vitals Vitals: Last Vital Signs Temp 36.0 C 01/07/21 22:05 Pulse 77 01/07/21 22:05 Resp 18 01/07/21 22:05 BP 128/72 01/07/21 22:05 Pulse Ox 99 01/07/21 22:05 - Abnormal Lab Findings Abnormal Lab Findings: Abnormal Lab Results 01/07/21 01/07/21 Range/Units 11:12 11:12 RBC 3.81 L (4.2-5.4) M/mm3 Hgb 12.2 L (12.5-16.0) gm/dL MCH 32.0 H (27-31) pg Eosinophils % 4.2 H (0.0-3.0) % Lymphocytes # 1.39 L (1.5-3.5) k/mm3 Potassium 4.7 H (3.4-4.6) mmol/L BUN 31 H (3-23) mg/dL Est GFR (Non-Af Amer) 49 L (60-130) mL/min BUN/Creatinine Ratio 27.0 H (9.0-21.6) - Exam Constitutional: Present: Alert, No distress - pleasantly confsued, Elderly. Absent: Oriented x3 - x1 ENT Exam: Present: hearing grossly normal Neck: Present: non-tender, full range of motion, supple Respiratory: Present: lungs clear, normal breath sounds Cardiovascular/Chest: Present: regular rate, rhythm, no murmur Abdomen: Present: soft, nontender, nondistended Extremity: Present: non-tender, no pedal edema Skin Exam: Present: normal color, warm/dry Neurologic: Present: associate merchandise planner II-XII nml as tested, no motor/sensory deficits, abnormal gait Appearance: Present: appropriate appearance, impaired insight, impaired recent memory Eye contact: Present: cooperative, good eye contact Thoughts: Present: normal thought pattern, normal mood /affect Assessment/Plan Plan Narrative: Patient with worsening confusion and mentation. Labs and vitals still stable, afebrile. Patient visually hallucinating, seeing animals in her room. Easy to redirect though. Unsure of what is causing this. She has no symptoms of meningitis at all. Nurse did state that she did not sleep at all last night and has not taken a nap. Sun-downing delirium is likely part of this and her sleep is affecting that. Will try low dose benadryl and melatonin tonight to see if she sleeps better. Hopefully with sleep she is able to feel better in the morning and begin to improve like she was yesterday. If she becomes agitated, will consider low dose haldol. Stopped rocephin. Repeat CBC.CMP in the AM. Consider repeat MRI as her symptoms have acutely worsening over the span of 24 hours and if she doesn't show signs of improving.Will also hold aspirin and plavix if we decide to perform LP though this is still definitely not indicated. Will reach out to her neurologist to see why he recommended the spinal tap. Tried to get ahold of her daughter. Left voice mail. Will try again tomorrow. Also will discontinue eliquis as she is on it due to symptomatic PE close to 18 months ago, it was a primary emboli. No issues before or since. Due to her increased risk of bleeidng I do not think she should continue eliquis. Started on ASA and plavix for suspected TIA. Continue PT, OT, and ST. Likely will need to inpatient rehad but need to get her mentation as close to her baseline as possible. Referral placed to [facility] inpatient rehab. Continue current tx plan. Nurse to call with any questions or concerns. - Problems/Diagnosis (1) AMS (altered mental status) Problem: Acute (2) Hypothyroidism Problem: Chronic Qualifiers: Hypothyroidism type: acquired Qualified Code(s): E03.9 - Hypothyroidism, unspecified (3) CRF (chronic renal failure) Problem: Chronic Qualifiers: Chronic kidney disease stage: stage 3 (moderate) (4) Elevated blood pressure reading Problem: Acute (5) Chronic anticoagulation Problem: Acute
[2021-01-08 08:29] LABS: Hemoglobin 12.4 gm/dL (12.5-16.0); Mean Cell Volume 100.8 fl (78-100); Mean Corpuscular Hgb Conc 31.8 g/dl (32-36); Mean Platelet Volume 9.6 fl (8-12.5); Neutrophil # 2.8 K/mm3 (1.3-6.0); Neutrophil % 55.9 % (42-75.0); Platelet Count 239 K/mm3 (150-450); Red Blood Count 3.87 M/mm3 (4.2-5.4); Red Cell Distribution Width 12.1 % (11.5-14.0)
[2021-01-08 08:39] LABS: Anion Gap 11.7 mmol/L (6.8-13.8); Calcium * 9.3 mg/dL (7.9-10.9); Carbon Dioxide 27.7 mmol/L (24-32.6); Estimated Creat Clear 32.9; Potassium 4.4 mmol/L (3.4-4.6)
[2021-01-08] MEDS: LEVOTHYROXINE SODIUM 175 MCG TABLET PO SCH (08:42)
[2021-01-08] MEDS: APIXABAN 5 MG TABLET PO SCH (08:42)
[2021-01-08] MEDS: MIDODRINE HCL 2.5 MG TABLET PO SCH ×3 (08:42→17:50)
[2021-01-08] MEDS: MECLIZINE HCL 25 MG TABLET PO SCH (17:52)
--- NOTE | 2021-01-08 18:04 | PN ---
Subjective - Date and Time Seen Date: 01/08/21 Time: 17:53 Subjective Narrative: Veronika is doing much better today than she was yesterday. She is better today than she was on Tuesday which was when she started to make a significant improvement from her altered status. Yesterday she was fairly delirious and hallucinating but I think this was more likely due to and her inability to sleep Tuesday night. The nurses confirm that she did not sleep at all through the night and did not nap at all during the day Tuesday and she was fairly out of it most of yesterday. Last night she got some melatonin and Benadryl and slept very well and woke up today back to her baseline cognitively speaking. She answered everything appropriately and was very pleasant today. Discussed with her about possibly going to short-term retirement facility for rehab which I think she would benefit from immensely but she was adamant that she did not want this to happen. Discussed this with her daughter today who was in agreement with this and thinks that she should go for short time. Currently holding her aspirin and Plavix as I was unsure whether's and have to do a lumbar puncture on her due to her change in mentation yesterday but since she is doing much better today, will likely resume tomorrow if she is still progressing and improving as expected. Her vital signs been stable and her repeat blood work again did not show any signs of infection whatsoever. Patient states that she feels well and denies headache, neck pain, fevers or chills, abdominal pain or nausea or vomiting. She is asking to go home today. She also was able to walk often today with therapy as well as nursing staff and her gait was much more stable and appropriate. Objective - Review of Systems Generalized/Overall Review: Reports: Weakness. Denies: Chills, Fever EENTM: Reports: No Symptoms Reported Respiratory: Reports: No Symptoms Reported Cardiac: Reports: No Symptoms Reported Abdominal: Reports: No Symptoms Reported Genitourinary Symptoms: Reports: No Symptoms Reported Neurological: Reports: No Symptoms Reported Skin: Reports: No Symptoms Reported Endocrine: Reports: No Symptoms Reported - Vitals Vitals: Last Vital Signs Temp 36.9 C 01/08/21 13:46 Pulse 86 01/08/21 14:00 Resp 18 04/15/21 13:46 BP 143/73 01/08/21 13:46 Pulse Ox 99 01/08/21 13:46 - Abnormal Lab Findings Abnormal Lab Findings: Abnormal Lab Results 01/08/21 01/08/21 Range/Units 08:15 08:15 RBC 3.87 L (4.2-5.4) M/mm3 Hgb 12.4 L (12.5-16.0) gm/dL MCV 100.8 H (78-100) fl MCH 32.0 H (27-31) pg MCHC 31.8 L (32-36) g/dl Eosinophils % 6.0 H (0.0-3.0) % BUN 28 H (3-23) mg/dL Est GFR (Non-Af Amer) 46 L (60-130) mL/min BUN/Creatinine Ratio 23.0 H (9.0-21.6) Random Glucose 113 H (70-110) mg/dL - Exam Constitutional: Present: Alert, Oriented x3, Cooperative, Elderly ENT Exam: Present: hard of hearing. Absent: nasal congestion, nasal drainage Neck: Present: non-tender, full range of motion, supple, normal inspection Respiratory: Present: lungs clear, normal breath sounds Cardiovascular/Chest: Present: regular rate, rhythm, no edema, no murmur Abdomen: Present: Normal bowel sounds, soft, nontender, nondistended Skin Exam: Present: normal color, warm/dry Neurologic: Present: allied health professional II-XII nml as tested, no motor/sensory deficits, alert, normal mood/affect, oriented x 3 Appearance: Present: appropriate appearance, appropriate insight Eye contact: Present: cooperative, good eye contact Thoughts: Present: normal thought pattern, normal mood /affect Assessment/Plan Plan Narrative: Veronika is here due to altered mental status and weakness with unknown cause. Concern for likely TIA is still top of the differential list of diagnoses and will restart her Plavix and aspirin tomorrow if she continues to show improvement like she did today. Discussed my reasoning with her neurologist about not doing an lumbar puncture which he agreed with based upon the information I gave him. Told him I would do a lumbar puncture though if she had any signs or symptoms develop indicating possible meningitis. Again I think her altered state yesterday was likely due to her not sleeping at all the night before as well as likely some delirium. This has since resolved following a good night sleep. Discussed her clinical picture with her daughter today, explained her that she was doing much better than she has since being here. Her daughter is in agreement with me that she does need to go to a retirement facility or inpatient rehab facility for short time for her to continue to get stronger and prepare herself to be other return home as she lives alone and normally is able to manage her ADLs without issues. Currently holding her aspirin and Plavix due to the fact that she could possibly need an LP in the future if her delirium and altered status return but I do not think this is likely. If she is doing better tomorrow then will restart these medications. Her daughter stated that she is also taking meclizine which she takes routinely for dizziness and balance issues which may be part of the reason why she was having so much difficulty walking when she was confused. This was restarted today. Currently holding Eliquis still has I do not think she should be on this chronically anymore with an isolated incident of previous pulmonary embolus that was likely unprovoked. Due to her risk factors for falling as well as her age I think it be more appropriate for her to not be anticoagulated which her daughter agreed with when I discussed this with her. Patient did receive 2 doses of Eliquis as a hold order had . The medication was stopped today. Her vital signs are stable and she is afebrile. Will repeat labs in the morning again as it will be 48 hours since she is been on antibiotics just to make sure that they stay within normal limits without being on antibiotics and I do not have a reason for her to be on them anyways. We will continue melatonin and Benadryl for sleep aid this evening. Nurse will call questions or concerns. - Problems/Diagnosis (1) AMS (altered mental status) Problem: Acute (2) Hypothyroidism Problem: Chronic Qualifiers: Hypothyroidism type: acquired Qualified Code(s): E03.9 - Hypothyroidism, unspecified (3) CRF (chronic renal failure) Problem: Chronic Qualifiers: Chronic kidney disease stage: stage 3 (moderate) (4) Elevated blood pressure reading Problem: Acute (5) Chronic anticoagulation Problem: Acute
[2021-01-08] MEDS ORDERED: MELATONIN 3,000 MCG TABLET PO SCH (21:00)
[2021-01-08] MEDS ORDERED: diphenhydrAMINE HCL 25 MG CAPSULE PO SCH (21:00)
[2021-01-08] MEDS: ROSUVASTATIN CALCIUM 10 MG TABLET PO SCH (21:06)
[2021-01-09 07:06] LABS: Hematocrit 36.1 % (37.0-47.0); Hemoglobin 11.5 gm/dL (12.5-16.0); Mean Cell Volume 99.7 fl (78-100); Mean Corpuscular Hemoglobin 31.8 pg (27-31); Mean Corpuscular Hgb Conc 31.9 g/dl (32-36); Mean Platelet Volume 9.8 fl (8-12.5); Neutrophil # 2.2 K/mm3 (1.3-6.0); Neutrophil % 45.1 % (42-75.0); Platelet Count 219 K/mm3 (150-450); Red Blood Count 3.62 M/mm3 (4.2-5.4); Red Cell Distribution Width 11.9 % (11.5-14.0); White Blood Count 4.9 K/mm3 (4.0-10.5)
[2021-01-09 07:35] LABS: Albumin * 3.7 gm/dl (3.4-5.0); BUN/Creatinine Ratio 25.2 (9.0-21.6); Bilirubin, Total 0.5 mg/dL (0.0-1.1); Ca. Corrected For Albumin 8.9 mg/dL (8.4-10.2); Carbon Dioxide 28.4 mmol/L (24-32.6); Total Protein 7.2 gm/dL (6.2-8.2)
[2021-01-09] MEDS: MIDODRINE HCL 2.5 MG TABLET PO SCH ×2 (09:25→14:23)
[2021-01-09] MEDS: LEVOTHYROXINE SODIUM 175 MCG TABLET PO SCH (09:25)
[2021-01-09] MEDS: MECLIZINE HCL 25 MG TABLET PO SCH ×2 (09:29→14:23)
[2021-01-09 13:43] LABS: Anion Gap 11.1 mmol/L (6.8-13.8); Potassium 4.5 mmol/L (3.4-4.6)
--- NOTE | 2021-01-09 13:44 | DS ---
(1) AMS (altered mental status) Problem: Resolved (2) Abnormal EEG Problem: Acute (3) Hypothyroidism Problem: Chronic Qualifiers: Hypothyroidism type: acquired Qualified Code(s): E03.9 - Hypothyroidism, unspecified (4) CRF (chronic renal failure) Problem: Chronic Qualifiers: Chronic kidney disease stage: stage 3 (moderate) (5) Elevated blood pressure reading Problem: Resolved (6) Chronic anticoagulation Problem: Inactive Date of Discharge:: 01/09/21 Hospital Course: 75-year-old female with history of hypothyroidism and pulmonary embolism was admitted to the hospital 5 days ago after having acute delirium and weakness, brought in by her daughter. In the ER she had an isolated low-grade temp as her only abnormality upon admission, her lab work only showed an elevated TSH but was otherwise unremarkable. CT scan of the brain as well as MRI of her brain did not show any acute process. Patient was started on Rocephin prophylactically but no source was identified. From a clinical standpoint she had no signs of meningitis or encephalitis and she was also on Eliquis at this time and so no lumbar puncture was performed. Lumbar puncture recommended by neurology if her acute delirium was not improving. She was continued on Rocephin for 3 days but after her lab work and procalcitonin (x2) came back negative for any signs of infection her antibiotic was discontinued. After discussing her clinical picture with her daughter, it was decided to not perform an LP as she was asymptomatic and had no signs of infection. No headache, no nuchal rigidity, no recurring fevers. On day 3 of her admission patient dramatically improved from a cognitive standpoint and was fairly back to baseline. Then the next day she was acutely delirious again but I think this was likely due to as the patient did not sleep at all Tuesday night or Tuesday during the day. She was hallucinating and seeing things that were not there. She was given Benadryl and melatonin to help her sleep Tuesday night and yesterday and today she has been completely coherent and appropriate. No neurological issues whatsoever on exam. No signs of infection again. She has been afebrile aside from the initial reading in the ER. Physical therapy originally wanted her to go to inpatient rehab due to her difficulty she had with her gait as well as having a right lateral lean but this all resolved on her own. Of note after again talking with her daughter it was determined that she is on meclizine chronically for dizziness and so I think the issues with her gait was more of a chronic picture and not related to her acute delirium. After being started back on meclizine she has not had any more issues with ambulation whatsoever. Patient has been completely with it for the last 48 hours and has not had any recurring deficits. Of note patient did get an EEG which did show slowing of background with occasional theta waves. This is consistent with mild diffuse cerebral dysfunction which is not diagnostic but does show that there is likely something taking place that has not been determined yet. I think her issues were likely more related to a TIA then anything else but this also could indicate the beginnings of dementia. Recommend that she follow-up with her neurologist soon for review of the EEG and possibly be started on medication that may help with her cognition in case she were to relapse and become demented. This was discussed with her daughter who was in agreement with this as well. Follow-up with neurology is being made by case management at this time. Of note patient has been on Eliquis for the last 18 months following a pulmonary embolus. Patient had not had any previous clotting issues and this was the first blood clot that she has had. It was recommended that she be on this indefinitely but I think due to her age and risk factors of following that it would be better to not be chronically anticoagulated as I think the harm that can come from this outweighs the benefit of preventing a blood clot that may or may not happen. Because I do believe this is a TIA, will start her on Plavix and low-dose aspirin which she will take daily and hopefully this will help prevent any clot formations in the future as well as prevent any recurrent TIAs. She will also be started on a statin medication. Again this was discussed with her daughter who was in agreement with this. This was explained to the patient who stated her understanding to the treatment plan and was also agreeable. Patient's TSH was elevated at 6.7 upon admission, increase her levothyroxine from 150 mcg up to 175 mcg. She will need a repeat TSH in 6 weeks. She will need to follow-up with her PCP in the next 1 to 2 weeks to make sure she is doing okay following her discharge from the hospital. Aside from starting her on Plavix and aspirin, discontinuing Eliquis, and increase her levothyroxineno other changes were made to her home medications. These changes will be sent to her pharmacy prior to being discharged. After patient's delirium resolved, patient was very pleasant and appropriate. I think she will do well after being discharged with close follow-up. She is wel come to follow-up with me if needed. She or her family can call with any questions or concerns they may have. Veronika Ayers is confined to home due to no longer driving secondary to her age as well as recent TIA. Most of her weakness is resolved with physical therapy was still recommended. The need for physical therapy is due to deconditioning and weakness following this hospitalization, she will need strengthening as well as help with her gait and balance issues that is a chronic issue but exacerbated by this hospitalization. She would also benefit from fdc as she is starting on new medications and will need help managing her new meds as well as monitoring her vital signs and checking for any neurological deficits that may arise as she just recently likely had a TIA but also may be having the beginnings of dementia starting. The need for home health care skilled services is directly related to the time spent [id number] with the patient. 1.5-hour spent on discharge of this patient including time spent with the patient and explaining the treatment plan, time spent discussing this with her daughter on the phone, time spent dictating her discharge summary, time spent on reconciling her medications and setting up her follow-up appointments. Procedures Performed: none Results and Findings: Lab Pending Results 01/04/21 10:00: Procalcitonin Less than 0.05 L 01/04/21 10:00: Ammonia Less than 17.0 01/04/21 10:00: WBC 7.1, RBC 4.04 L, Hgb 13.0, Hct 40.2, MCV 99.5, MCH 32.2 H, MCHC 32.3, RDW 12.2, Plt Count 244, MPV 9.5, Immature Gran % (Auto) 0.30, Immature Gran # (Auto) 0.02, Neutrophils % 67.9, Lymphocytes % 23.7, Monocytes % 6.8, Eosinophils % 1.0, Basophils % 0.3, Nucleated RBC % 0.0, Neutrophils # 4.8, Lymphocytes # 1.67, Monocytes # 0.5, Eosinophils # 0.1, Absolute Basophils 0.0 01/04/21 10:00: Sodium 135, Plasma Sodium 135, Potassium 4.7 H, Chloride 99, Carbon Dioxide 29.3, Anion Gap 11.4, BUN 22, Creatinine 1.15, Est GFR (Non-Af Amer) 49 L D, BUN/Creatinine Ratio 19.1, Random Glucose 93, Calcium 9.9, Calcium Adj for Albumin 9.3, Total Bilirubin 1.1, AST 39, ALT 49, Alkaline Phosphatase 87, Troponin I Less than 0.017, Total Protein 8.7 H, Albumin 4.4, Lipase 156, TSH 6.546 H 01/04/21 10:00: Lactic Acid, Venous 1.1 01/04/21 10:00: Influenza Type A Ag Negative, Influenza Type B Ag Negative 01/04/21 10:02: Urine Color Yellow, Urine Appearance Clear, Urine pH 7.0, Ur Specific [place] 1.020, Urine Protein Negative, Urine Glucose (UA) Negative, Urine Ketones Negative, Urine Blood Negative, Urine Nitrate Negative, Urine Bilirubin Negative, Urine Urobilinogen Normal, Ur Leukocyte Esterase Negative, Urine RBC None seen, Urine WBC None seen, Ur Epithelial Cells 0-5, Urine Bacteria Trace, Urine Mucus Trace, Urine Culture Comments No culture indicated 01/04/21 10:02: Urine Opiates Screen Negative, Barbiturate Screen Negative, Ur Phencyclidine Scrn Negative, Urine Amphetamine Negative, U Benzodiazepines Scrn Negative, Urine Cocaine Screen Negative, Urine Marijuana (THC) Negative 01/04/21 10:27: Group A Strep Rapid Negative 01/04/21 10:27: SARS-CoV-2 (PCR) Not detected 01/06/21 10:11: WBC 5.7, RBC 3.73 L, Hgb 12.1 L, Hct 37.4, MCV 100.3 H, MCH 32.4 H, MCHC 32.4, RDW 12.1, Plt Count 210, MPV 9.5, Immature Gran % (Auto) 0.20, Immature Gran # (Auto) 0.01, Neutrophils % 57.0, Lymphocytes % 30.0, Monocytes % 9.1 H, Eosinophils % 3.5 H, Basophils % 0.2, Nucleated RBC % 0.0, Neutrophils # 3.3, Lymphocytes # 1.72, Monocytes # 0.5, Eosinophils # 0.2, Absolute Basophils 0.0 01/06/21 10:11: Sodium 140, Plasma Sodium 140, Potassium 4.2, Chloride 106, Carbon Dioxide 28.3, Anion Gap 9.9, BUN 28 H, Creatinine 1.10, Est GFR (Non-Af Amer) 51 L, BUN/Creatinine Ratio 25.5 H, Random Glucose 93, Calcium 9.1, Calcium Adj for Albumin 9.0, Total Bilirubin 0.5, AST 19, ALT 33, Alkaline Phosphatase 72, Total Protein 7.5, Albumin 3.7 01/06/21 10:11: Procalcitonin Less than 0.05 L 01/07/21 11:12: WBC 5.5, RBC 3.81 L, Hgb 12.2 L, Hct 38.0, MCV 99.7, MCH 32.0 H, MCHC 32.1, RDW 12.0, Plt Count 223, MPV 9.5, Immature Gran % (Auto) 0.20, Immature Gran # (Auto) 0.01, Neutrophils % 62.3, Lymphocytes % 25.4, Monocytes % 7.5, Eosinophils % 4.2 H, Basophils % 0.4, Nucleated RBC % 0.0, Neutrophils # 3.4, Lymphocytes # 1.39 L, Monocytes # 0.4, Eosinophils # 0.2, Absolute Basophils 0.0 01/07/21 11:12: Sodium 142, Plasma Sodium 142, Potassium 4.7 H, Chloride 105, Carbon Dioxide 28.1, Anion Gap 13.6, BUN 31 H, Creatinine 1.15, Est GFR (Non-Af Amer) 49 L, BUN/Creatinine Ratio 27.0 H, Random Glucose 87, Calcium 9.2, Calcium Adj for Albumin 9.0, Total Bilirubin 0.3, AST 21, ALT 36, Alkaline Phosphatase 73, Total Protein 7.9, Albumin 3.9 01/08/21 08:15: WBC 5.0, RBC 3.87 L, Hgb 12.4 L, Hct 39.0, MCV 100.8 H, MCH 32.0 H, MCHC 31.8 L, RDW 12.1, Plt Count 239, MPV 9.6, Immature Gran % (Auto) 0.40, Immature Gran # (Auto) 0.02, Neutrophils % 55.9, Lymphocytes % 30.3, Monocytes % 7.0, Eosinophils % 6.0 H, Basophils % 0.4, Nucleated RBC % 0.0, Neutrophils # 2.8, Lymphocytes # 1.52, Monocytes # 0.4, Eosinophils # 0.3, Absolute Basophils 0.0 01/08/21 08:15: Sodium 140, Plasma Sodium 140, Potassium 4.4, Chloride 105, Carbon Dioxide 27.7, Anion Gap 11.7, BUN 28 H, Creatinine 1.22, Est GFR (Non-Af Amer) 46 L, BUN/Creatinine Ratio 23.0 H, Random Glucose 113 H, Calcium 9.3 01/09/21 06:56: WBC 4.9, RBC 3.62 L, Hgb 11.5 L, Hct 36.1 L, MCV 99.7, MCH 31.8 H, MCHC 31.9 L, RDW 11.9, Plt Count 219, MPV 9.8, Immature Gran % (Auto) 0.20, Immature Gran # (Auto) 0.01, Neutrophils % 45.1, Lymphocytes % 37.3, Monocytes % 11.5 H, Eosinophils % 5.7 H, Basophils % 0.2, Nucleated RBC % 0.0, Neutrophils # 2.2, Lymphocytes # 1.82, Monocytes # 0.6, Eosinophils # 0.3, Absolute Basophils 0.0 01/09/21 06:56: Sodium Pending, Plasma Sodium Pending, Potassium Pending, Chloride Pending, Carbon Dioxide 28.4, Anion Gap Pending, BUN 26 H, Creatinine 1.03, Est GFR (Non-Af Amer) 56 L D, BUN/Creatinine Ratio 25.2 H, Random Glucose 85, Calcium 9.0, Calcium Adj for Albumin 8.9, Total Bilirubin 0.5, AST 20, ALT 31, Alkaline Phosphatase 72, Total Protein 7.2, Albumin 3.7 Discharge Location: Home Disposition: Home Health Service Home Health Agency: [facility] Home Health Condition: Stable Discharge Activity: Activity as tolerated Discharge Diet: Low fat/chol Referrals: Kely Luo ARNP [Primary Care Provider] - One Week Additional Patient Instructions (free text): [facility] [place] villagran. Please call report and fax orders upon discharge. Follow up with [facility] on 01/12/21@1:20pm arrival, appt 1:40pm at [facility]. Please call [phone] to reschedule if this appointment time does not work. Please fax records from stay along with imaging . . Follow up appointment with Priscilla Jiménez on January 15 at 2:40 Prescriptions (Any new or edited meds): Aspirin [Adult Aspirin Regimen] 81 mg PO DAILY #30 tablet. Transmission Status: Pending to [place], [place] Rosuvastatin Calcium [Crestor] 10 mg PO HS #30 tab Transmission Status: Pending to [place], [place] Clopidogrel Bisulfate [Plavix] 75 mg PO DAILY #30 tab Transmission Status: Pending to [place], [place] Levothyroxine Sodium [Synthroid] 175 mcg PO DAILY@0700 #30 tab Transmission Status: Pending to [place], [place] Complete Home Medications List: Complete Home Medication List: Ascorbic Acid [Vitamin C] 1,000 mg PO DAILY 01/04/21 Calcium Carbonate [Calcium] 1,000 mg PO DAILY 01/04/21 Cholecalciferol [Vitamin D] 3,000 unit PO DAILY 01/04/21 Ferrous Sulfate [Iron] 325 mg PO DAILY 01/04/21 Meclizine HCl [Motion-Time] 25 mg PO TID 01/04/21 Midodrine HCl 5 mg PO TID 01/04/21 [place]-3S/Dha/Epa/Fish Oil [Fish Oil 1,200 mg Softgel] 1 ea PO HS 01/04/21 Sennosides [Senokot] 2 tab PO HS 01/04/21 Aspirin [Adult Aspirin Regimen] 81 mg PO DAILY #30 tablet. 01/09/21 Clopidogrel Bisulfate [Plavix] 75 mg PO DAILY #30 tab 01/09/21 Levothyroxine Sodium [Synthroid] 175 mcg PO DAILY@0700 #30 tab 01/09/21 Rosuvastatin Calcium [Crestor] 10 mg PO HS #30 tab 01/09/21 Forms: Patient Portal Registration
[2021-01-09 16:22] VITALS: BP 127/69
== END 2021-01-09 16:14 | disposition home health service (06) | DRG 69 ==
LOC: MS 09:39 → ER 09:39 → MS 13:30
PROVIDERS: ADMIT Family Medicine; ATTEND Family Medicine

== ENCOUNTER 2021-02-04 14:57 | Observation (INO) ==
--- NOTE | 2021-02-04 16:12 | ERNOTE ---
Back Pain ER HPI Date of Service: 02/04/21 Presenting Symptoms: other - right posterior rib pain Time Seen by Provider: 02/04/21 15:47 Source: patient Exam Limitations: no limitations Immunizations: IMMUNIZATION HX Immunizations Up to Date Yes History of Influenza Vaccine No Hx Pneumococcal Vaccination No Allergies/Adverse Reactions: Allergies codeine Allergy (Verified 02/04/21 14:59) Home Medications: HOME MEDICATIONS Ascorbic Acid [Vitamin C] 1,000 mg PO DAILY 01/04/21 [Last Taken Unknown] Calcium Carbonate [Calcium] 1,000 mg PO DAILY 01/04/21 [Last Taken Unknown] Cholecalciferol [Vitamin D] 3,000 unit PO DAILY 01/04/21 [Last Taken Unknown] Ferrous Sulfate [Iron] 325 mg PO DAILY 01/04/21 [Last Taken Unknown] Meclizine HCl [Motion-Time] 25 mg PO TID 01/04/21 [Last Taken Unknown] Midodrine HCl 5 mg PO TID 01/04/21 [Last Taken Unknown] [place]-3S/Dha/Epa/Fish Oil [Fish Oil 1,200 mg Softgel] 1 ea PO HS 01/04/21 [Last Taken Unknown] Sennosides [Senokot] 2 tab PO HS 01/04/21 [Last Taken Unknown] Aspirin [Adult Aspirin Regimen] 81 mg PO DAILY #30 tablet 01/09/21 [Last Taken Unknown] Clopidogrel Bisulfate [Plavix] 75 mg PO DAILY #30 tab 01/09/21 [Last Taken Unknown] Levothyroxine Sodium [Synthroid] 175 mcg PO DAILY@0700 #30 tab 01/09/21 [Last Taken Unknown] Rosuvastatin Calcium [Crestor] 10 mg PO HS #30 tab 01/09/21 [Last Taken Unknown] - Pain Score Pain Score #1 Pain Score: 4 Narrative: The patient is a 75 year old female who presents via POV for fall which occurred Tuesday. There are associated symptoms of right posterior rib pain. The patient reports pain to right posterior ribs, 4/10. There are alleviating factors of rest and position. There are aggravating factors of activity. Previous treatments have included: Tylenol with minimal assistance. The past medical history includes: PE, hypothyroid and osteoarthritis. The social history is negative. The patient has had no known ill contacts. Patient states she stool from using the restroom at home and lost her balance causing her to fall forward. Patient states she struck her head on the wall as well as hit right arm and lateral posterior chest. Patient denies LOC and states "she barely hit her head". Patient had appt today with chiropractor and was referred to ER for imaging of chest due to concern for rib fractures due to pain and injury. Review of Systems - Review of Systems Constitutional: Present: no symptoms reported. Absent: fever, chills, fatigue EYE: Present: no symptoms reported. Absent: vision changes ENT: Present: no symptoms reported. Absent: ear pain, nasal drainage, sore throat Respiratory: Present: no symptoms reported. Absent: shortness of breath, cough Cardiology: Present: chest pain Gastrointestinal/Abdominal: Present: no symptoms reported. Absent: nausea, vomiting, diarrhea, abdominal pain Genitourinary: Present: no symptoms reported. Absent: dysuria, decreased urinary output Musculoskeletal: Present: no symptoms reported. Absent: back pain, neck pain Skin: Present: no symptoms reported. Absent: rash Neurological: Present: no symptoms reported. Absent: headache, dizziness/light- headedness, weakness Medical History (Last Reviewed 02/04/21 @ 17:18 by FRED Barboza) Multiple system atrophy Osteoporosis Pulmonary embolism Subcapital fracture of femur Onset Date: Unknown L hip = S/P closed reduction Hypothyroidism Onset Date: Unknown Osteoarthritis Onset Date: Unknown spine Surgical History: Surgical History (Last Reviewed 02/04/21 @ 17:18 by FRED Barboza) History of kyphoplasty T8 Fingernail problem Onset Date: ~2011 Fingernail/Toenail removal. [facility] toe History of carpal tunnel release Onset Date: Unknown History of hip surgery Onset Date: ~09/27/12 closed reduction of left hip with percutaneous pinning. Dr. Albert Hx of LASIK Onset Date: Unknown Family History: Family History (Last Reviewed 02/04/21 @ 17:18 by FRED Barboza) Mother Glaucoma Hiatal hernia Father No problems noted. 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 Highest level of school completed/degree received: high school graduate Service: No Tobacco: Smoking Status: Never smoker Alcohol: alcohol intake: current alcohol intake frequency: a few times a month Substance Use: substance use type: does not use Dietary Habits: caffeine: Yes Physical Exam - Physical Exam General Appearance: Present: wd/wn, mild distress Head Exam: Present: normal inspection, no evidence of injury, no tenderness w palpation Eye Exam: Normal inspection: bilateral, PERRL: bilateral, EOMI: bilateral Neck: Present: normal inspection, nontender, full range of motion Respiratory: Present: no respiratory distress, normal breath sounds, no accessory muscle use, lungs clear, chest tenderness - right lateral and posterior rib pain Cardiovascular/Chest: Present: regular rate, rhythm, no murmur Peripheral Pulses: N=norm/S=strong/W=weak/B=bound/A=absent: Radial (R): Normal Back Exam: Present: no vertebral tenderness, other - right thoracic paraspinal pain Extremity Exam: Present: normal range of motion - right upper extremity Neurological Exam: Present: alert, oriented, normal mood/affect, no motor/sensory deficits, 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 02/04/21 18:53 returns call after consult with neurosurgery team that reviewed images shared, recommend locale admission for continued monitoring and repeat CT imaging at 6 hour interval. Will discuss with . 02/07/21 19:00 Case reviewed with and accepts patient for observation admission, will place order for CT head at 2200 and hold Plavix as recommended by neurosurgery. Patient was started on Plavix for TIA. This plan of care was discussed with patient and daughter at bedside, verbalize understanding and agree with care plan. Patient upon admission remains without neurologic changes. - Results and Orders Patient's Lab Results:: I have reviewed the patient's lab results. - Vital Signs Patient's Vital Signs:: I have reviewed the patient's vital signs. Vital Signs: Vital Signs 02/04/21 14:58 Temperature 36.9 C Pulse Rate 93 Respiratory Rate 16 Blood Pressure 152/87 H O2 Sat by Pulse Oximetry 95 - X-Ray X-Ray #1 X-Ray: ribs Interpretation: Reviewed by me X-ray Comments: IMPRESSION: NEGATIVE RIGHT RIB SERIES. Electronically signed by Daniel Adams MD. X-Ray #2 X-Ray: chest Interpretation: Reviewed by me X-ray Comments: IMPRESSION: NO ACUTE ABNORMALITIES. MULTILEVEL DORSAL KYPHOTIC DEGENERATIVE CHANGE AND VERTEBROPLASTY. FRACTURE. Electronically signed by Daniel Adams MD. - CT/Ultrasound CT/Ultrasound Narrative: IMPRESSION: SMALL ACUTE SUBDURAL HEMATOMAS ALONG THE MID AND POSTERIOR MIDLINE FALCINE REFLECTION WITH NO MASS EFFECT OR SKULL FRACTURE. CHRONIC SENESCENT CHANGE. FINDINGS DISCUSSED WITH THE EMERGENCY DEPARTMENT PROVIDER AT 1640 HOURS. - Progress/Reassessment Chief Complaint: Back Pain Progress:: Unchanged Departure Clinical Impression: Intracranial hemorrhage, Subdural hematoma Fall Qualifiers: Encounter type: initial encounter Qualified Code(s): W19.XXXA - Unspecified fall, initial encounter - Departure Disposition: Still a patient Condition: Good Referrals: Kely Luo ARNP [Primary Care Provider] -
[2021-02-04 17:07] LABS: Hematocrit 35.3 % (37.0-47.0); Hemoglobin 11.2 gm/dL (12.5-16.0); Mean Cell Volume 100.3 fl (78-100); Mean Corpuscular Hemoglobin 31.8 pg (27-31); Mean Corpuscular Hgb Conc 31.7 g/dl (32-36); Mean Platelet Volume 9.4 fl (8-12.5); Neutrophil # 3.3 K/mm3 (1.3-6.0); Neutrophil % 62.9 % (42-75.0); Platelet Count 184 K/mm3 (150-450); Red Blood Count 3.52 M/mm3 (4.2-5.4); Red Cell Distribution Width 12.3 % (11.5-14.0); White Blood Count 5.3 K/mm3 (4.0-10.5)
[2021-02-04 17:18] LABS: INR 1.06 INR (0.92-1.08); Partial Thrombolplastin Time 24.5 Seconds (24-32)
[2021-02-04 17:20] LABS: Albumin * 4.2 gm/dl (3.4-5.0); Anion Gap 13.9 mmol/L (6.8-13.8); Bilirubin, Total 0.6 mg/dL (0.0-1.1); Ca. Corrected For Albumin 8.8 mg/dL (8.4-10.2); Calcium * 9.3 mg/dL (7.9-10.9); Potassium 4.9 mmol/L (3.4-4.6); Total Protein 7.9 gm/dL (6.2-8.2)
[2021-02-04] MEDS ORDERED: ACETAMINOPHEN 500 MG TABLET PO PRN (19:43)
--- NOTE | 2021-02-04 20:01 | HP ---
Chief Complaint - Chief Complaint Date of Service: 02/04/21 Time of Service: 19:51 Chief Complaint: I have right rib pain History of Present Illness: 75-year-old female with past medical history of osteoarthritis, osteoporosis, TIA, pulmonary embolism, and hyperlipidemia was brought to the ER for evaluation of injuries secondary to a fall that occurred on Tuesday evening in her home. Patient reports she went to stand up from the toilet and lost her balance and fell forward against a wall. She hit her head but says impact was only minimal but she fell against her right arm and right thorax. Since then the patient has been having right-sided thoracic pain for which she went to see her chiropractor to be adjusted. The chiropractor refused to do the procedure without imaging to rule out any rib fractures, so the patient was sent to the hospital for imaging. Once in the hospital and after obtaining the history in the ER decision to CT the patient's head to rule out any head injuries was made. She was discovered to have a small subdural hematoma but chest x-ray was negative for any rib fractures. The neurosurgical team at the [facility] was contacted and they recommended admitting the patient here at [facility] for overnight observation and to repeat the head CT in 6 hours. She denies any headaches or dizziness or any other neurological symptoms, neurological exam was negative. Therefore we will keep the patient overnight and repeat a CT to rule out any expansion of the bleed. For now she maintained stable vitals and complains of only minimal right sided thoracic pain. Thankfully the patient had no rib fractures. Of note the patient is currently on Plavix for TIA that occurred several months ago, per the recommendation of the neurosurgical team at the [facility] we will hold Plavix for 5 days given the hematoma. Medical History (Last Reviewed 02/04/21 @ 17:18 by FRED Barboza) Multiple system atrophy Osteoporosis Pulmonary embolism Subcapital fracture of femur Onset Date: Unknown L hip = S/P closed reduction Hypothyroidism Onset Date: Unknown Osteoarthritis Onset Date: Unknown spine Surgical History: Surgical History (Last Reviewed 02/04/21 @ 17:18 by FRED Barboza) History of kyphoplasty T8 Fingernail problem Onset Date: ~2011 Fingernail/Toenail removal. [place] toe History of carpal tunnel release Onset Date: Unknown History of hip surgery Onset Date: ~09/27/12 closed reduction of left hip with percutaneous pinning. Dr. Albert Hx of LASIK Onset Date: Unknown Family History: Family History (Last Reviewed 02/04/21 @ 17:18 by FRED Barboza) Mother Glaucoma Hiatal hernia Father No problems noted. 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 Highest level of school completed/degree received: high school graduate Service: No Tobacco: Smoking Status: Never smoker Alcohol: alcohol intake: current alcohol intake frequency: a few times a month Substance Use: substance use type: does not use Dietary Habits: caffeine: Yes Peds Patient Hx - Developmental: No Pertinent Hx Peds Patient Hx - Medical: No Pertinent Hx Peds Patient Hx - Cardiac/Respiratory: No Pertinent Hx Peds Patient Hx - Surgical: No Surgical History Patient History - Cancer: No Hx of Cancer Review Of Systems (GEN) - Review of Systems Generalized/Overall Review: Present: No Symptoms Reported EENTM: Present: No Symptoms Reported Respiratory: Present: No Symptoms Reported Cardiac: Present: No Symptoms Reported Abdominal: Present: No Symptoms Reported Genitourinary: Present: No Symptoms Reported Musculoskeletal: Present: No Symptoms Reported Neurological: Present: Pre-existing Deficit Skin: Present: No Symptoms Reported Endocrine: Present: No Symptoms Reported Immunizations: IMMUNIZATION HX Immunizations Up to Date Yes History of Influenza Vaccine No Hx Pneumococcal Vaccination No Allergies/Adverse Reactions: Allergies Allergy/AdvReac Type Severity Reaction Status Date / Time codeine Allergy Verified 02/04/21 14:59 Home Medications: HOME MEDICATIONS Ascorbic Acid [Vitamin C] 1,000 mg PO DAILY 01/04/21 [Last Taken Unknown] Calcium Carbonate [Calcium] 1,000 mg PO DAILY 01/04/21 [Last Taken Unknown] Cholecalciferol [Vitamin D] 3,000 unit PO DAILY 01/04/21 [Last Taken Unknown] Ferrous Sulfate [Iron] 325 mg PO DAILY 01/04/21 [Last Taken Unknown] Meclizine HCl [Motion-Time] 25 mg PO TID 01/04/21 [Last Taken Unknown] Midodrine HCl 5 mg PO TID 01/04/21 [Last Taken Unknown] [place]-3S/Dha/Epa/Fish Oil [Fish Oil 1,200 mg Softgel] 1 ea PO HS 01/04/21 [Last Taken Unknown] Sennosides [Senokot] 2 tab PO HS 01/04/21 [Last Taken Unknown] Aspirin [Adult Aspirin Regimen] 81 mg PO DAILY #30 tablet. 01/09/21 [Last Taken Unknown] Clopidogrel Bisulfate [Plavix] 75 mg PO DAILY #30 tab 01/09/21 [Last Taken Unknown] Levothyroxine Sodium [Synthroid] 175 mcg PO DAILY@0700 #30 tab 01/09/21 [Last Taken Unknown] Rosuvastatin Calcium [Crestor] 10 mg PO HS #30 tab 01/09/21 [Last Taken Unknown] Exam - Exam Vital Signs: Vital Signs - Last Taken Temp 37.2 C 02/04/21 18:54 Pulse 89 02/04/21 18:54 Resp 16 02/04/21 18:54 BP 148/71 02/04/21 18:54 Pulse Ox 98 02/04/21 18:54 Constitutional: Present: Alert, Oriented x3, Cooperative, Well developed, Well nourished, No distress, Elderly ENT Exam: Present: normal ENT inspection, hearing grossly normal Eye Exam: bilateral eye: normal inspection, PERRL, EOMI Neck: Present: non-tender, full range of motion, supple, normal inspection, trachea midline Back Exam: Present: normal inspection, no CVA tenderness, no vertebral tenderness Breasts: Present: Exam deferred, Nontender Respiratory: Present: chest non-tender, lungs clear, normal breath sounds, no respiratory distress, no accessory muscle use Cardiovascular/Chest: Present: normal peripheral pulses, regular rate, rhythm, no chest tenderness, no edema, no gallop, no JVD, no murmur, no rub Peripheral Pulses: dorsalis-pedis (R): 2+, dorsalis-pedis (L): 2+ Abdomen: Present: Normal bowel sounds, soft, nontender, nondistended, no rebound tenderness, no hepatospenomegaly, no masses /Rectal: Present: Exam deferred Extremity: Present: normal range of motion, non-tender, normal inspection, no pedal edema, no calf tenderness, normal capillary refill, pelvis stable Skin Exam: Present: normal color, warm/dry, no cyanosis Lymphatic: Present: no adenopathy Neurologic: Present: 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 as tested, normal cerebellar test, no motor/sensory deficits, alert, normal mood/affect, oriented x 3 Appearance: Present: appropriate appearance, appropriate insight, neat, no memory impairment Eye contact: Present: cooperative, good eye contact, normal speech Thoughts: Present: normal thought pattern, no apparent hallucination Diagnostic Studies: Abnormal Lab Results 02/04/21 02/04/21 02/04/21 Range/Units 16:57 16:57 16:57 RBC 3.52 L (4.2-5.4) M/mm3 Hgb 11.2 L (12.5-16.0) gm/dL Hct 35.3 L (37.0-47.0) % MCV 100.3 H (78-100) fl MCH 31.8 H (27-31) pg MCHC 31.7 L (32-36) g/dl Eosinophils % 4.9 H (0.0-3.0) % Lymphocytes # 1.20 L (1.5-3.5) k/mm3 PT 11.0 H (9.1-10.7) Seconds Potassium 4.9 H (3.4-4.6) mmol/L Anion Gap 13.9 H (6.8-13.8) mmol/L BUN 27 H (3-23) mg/dL Est GFR (Non-Af Amer) 45 L (60-130) mL/min BUN/Creatinine Ratio 22.0 H (9.0-21.6) AST 70 H (0-48) U/L ALT 110 H (19-67) U/L Laboratory Results WBC 5.3 K/mm3 (4.0-10.5) 02/04/21 16:57 RBC 3.52 M/mm3 (4.2-5.4) L 02/04/21 16:57 Hgb 11.2 gm/dL (12.5-16.0) L 02/04/21 16:57 Hct 35.3 % (37.0-47.0) L 02/04/21 16:57 MCV 100.3 fl (78-100) H 02/04/21 16:57 MCH 31.8 pg (27-31) H 02/04/21 16:57 MCHC 31.7 g/dl (32-36) L 02/04/21 16:57 RDW 12.3 % (11.5-14.0) 02/04/21 16:57 Plt Count 184 K/mm3 (150-450) 02/04/21 16:57 MPV 9.4 fl (8-12.5) 02/04/21 16:57 Immature Gran % (Auto) 0.20 % (0.001-0.429) 02/04/21 16:57 Immature Gran # (Auto) 0.01 K/mm3 (0.000-0.0310) 02/04/21 16:57 Neutrophils % 62.9 % (42-75.0) 02/04/21 16:57 Lymphocytes % 22.7 % (20-51) 02/04/21 16:57 Monocytes % 8.9 % (0.0-9) 02/04/21 16:57 Eosinophils % 4.9 % (0.0-3.0) H 02/04/21 16:57 Basophils % 0.4 % (0.0-1.0) 02/04/21 16:57 Nucleated RBC % 0.0 k/mm3 (0-1) 02/04/21 16:57 Neutrophils # 3.3 K/mm3 (1.3-6.0) 02/04/21 16:57 Lymphocytes # 1.20 k/mm3 (1.5-3.5) L 02/04/21 16:57 Monocytes # 0.5 k/mm3 (0.0-1.0) 02/04/21 16:57 Eosinophils # 0.3 k/mm3 (0.0-0.7) 02/04/21 16:57 Absolute Basophils 0.0 k/mm3 (0.0-0.1) 02/04/21 16:57 PT 11.0 Seconds (9.1-10.7) H 02/04/21 16:57 INR (Anticoag Therapy) 1.06 INR (0.92-1.08) 02/04/21 16:57 PTT (Billie) 24.5 Seconds (24-32) 02/04/21 16:57 Sodium 142 mmol/L (132-142) 02/04/21 16:57 Plasma Sodium 142 mmol/L (130-142) 02/04/21 16:57 Potassium 4.9 mmol/L (3.4-4.6) H 02/04/21 16:57 Chloride 105 mmol/L (97-106) 02/04/21 16:57 Carbon Dioxide 28.0 mmol/L (24-32.6) 02/04/21 16:57 Anion Gap 13.9 mmol/L (6.8-13.8) H 02/04/21 16:57 BUN 27 mg/dL (3-23) H 02/04/21 16:57 Creatinine 1.23 mg/dL (0.4-1.4) 02/04/21 16:57 Est GFR (Non-Af Amer) 45 mL/min (60-130) L 02/04/21 16:57 BUN/Creatinine Ratio 22.0 (9.0-21.6) H 02/04/21 16:57 Random Glucose 95 mg/dL (70-110) 02/04/21 16:57 Calcium 9.3 mg/dL (7.9-10.9) 02/04/21 16:57 Calcium Adj for Albumin 8.8 mg/dL (8.4-10.2) 02/04/21 16:57 Total Bilirubin 0.6 mg/dL (0.0-1.1) 02/04/21 16:57 AST 70 U/L (0-48) H 02/04/21 16:57 ALT 110 U/L (19-67) H 02/04/21 16:57 Alkaline Phosphatase 113 U/L (50-170) 02/04/21 16:57 Total Protein 7.9 gm/dL (6.2-8.2) 02/04/21 16:57 Albumin 4.2 gm/dl (3.4-5.0) 02/04/21 16:57 Assessment/Plan - Narrative Narrative: Patient was evaluated medical chart was reviewed and decision to admit for small subdural hematoma was made. We will keep the patient overnight for observation and repeat head CT later on this leaving as recommended by [facility]. Physical exam was unremarkable the patient only had mild tenderness on her right posterior thorax. Neurological examination was negative for any concerning find ings. We will keep her in monitor her and do periodic neuro checks and reevaluate in the morning. - Assessment/Plan (1) Subdural hematoma Problem: Acute (2) Hypothyroidism Problem: Chronic Qualifiers: (3) CRF (chronic renal failure) Problem: Chronic (4) Abnormal head CT Problem: Acute (5) Chronic anticoagulation Problem: Inactive (6) Intracranial hemorrhage Problem: Acute (7) Fall Problem: Acute Qualifiers: Encounter type: initial encounter Qualified Code(s): W19.XXXA - Unspecified fall, initial encounter (8) CKD (chronic kidney disease) stage 3, GFR 30-59 ml/min Problem: Acute (9) Hypertension Problem: Chronic
[2021-02-04] MEDS ORDERED: ROSUVASTATIN CALCIUM 10 MG TABLET PO SCH (21:00)
[2021-02-04] MEDS ORDERED: SENNOSIDES 8.6 MG TABLET PO SCH (21:00)
[2021-02-04] MEDS: MECLIZINE HCL 25 MG TABLET PO SCH (21:44)
[2021-02-04] MEDS: PANTOPRAZOLE SODIUM 20 MG TABLET.DR PO SCH (21:45)
[2021-02-04] MEDS: CHOLECALCIFEROL 1,000 UNIT CAPSULE PO SCH (21:45)
[2021-02-04] MEDS: MIDODRINE HCL 2.5 MG TABLET PO SCH (21:45)
[2021-02-04] MEDS: traMADol HCL 50 MG TABLET PO PRN (23:09)
[2021-02-05] MEDS: traMADol HCL 50 MG TABLET PO PRN ×2 (05:18→13:27)
[2021-02-05] MEDS ORDERED: LEVOTHYROXINE SODIUM 175 MCG TABLET PO SCH (07:00)
[2021-02-05] MEDS: PANTOPRAZOLE SODIUM 20 MG TABLET.DR PO SCH (07:15)
[2021-02-05] MEDS: MECLIZINE HCL 25 MG TABLET PO SCH ×2 (08:11→13:27)
[2021-02-05] MEDS: MIDODRINE HCL 2.5 MG TABLET PO SCH ×2 (08:15→13:27)
[2021-02-05] MEDS: CHOLECALCIFEROL 1,000 UNIT CAPSULE PO SCH (08:15)
[2021-02-05] MEDS ORDERED: FERROUS SULFATE 325 MG TABLET PO SCH (09:00)
[2021-02-05] MEDS ORDERED: CALCIUM CARBONATE 500 MG TAB.CHEW PO SCH (09:00)
[2021-02-05] MEDS ORDERED: ASCORBIC ACID 500 MG TABLET PO SCH (09:00)
--- NOTE | 2021-02-05 10:23 | DS ---
(1) Subdural hematoma Problem: Acute (2) Hypothyroidism Problem: Chronic Qualifiers: (3) CRF (chronic renal failure) Problem: Chronic (4) Abnormal head CT Problem: Acute (5) Chronic anticoagulation Problem: Inactive (6) Intracranial hemorrhage Problem: Acute (7) Fall Problem: Acute Qualifiers: Encounter type: initial encounter Qualified Code(s): W19.XXXA - Unspecified fall, initial encounter (8) CKD (chronic kidney disease) stage 3, GFR 30-59 ml/min Problem: Acute (9) Hypertension Problem: Chronic Date of Discharge:: 02/05/21 Hospital Course: 75-year-old female admitted for observation of an acute small subdural hematoma secondary to fall that occurred this past weekend in her home was evaluated at bedside this morning was found to be afebrile and in no acute distress. Patient reports feeling better than when she arrived, she denies any dizziness or headaches and says she just wanted go home. We repeated the head CT last night per the recommendation of the neurosurgery department at the [place] and it was negative for any expansion of the subdural bleed. The patient has not shown any new neurological symptoms and appears to be at her baseline. This morning we once again reminded her that we will hold her Plavix for 5 days and she is to discuss resuming it with her PCP. Therefore the cyanide case hardener will arrange a follow-up appointment with doctor in order to determine how to proceed concerning the Plavix. Procedures Performed: none Results and Findings: Lab Pending Results 02/04/21 16:57: WBC 5.3, RBC 3.52 L, Hgb 11.2 L, Hct 35.3 L, MCV 100.3 H, MCH 31.8 H, MCHC 31.7 L, RDW 12.3, Plt Count 184, MPV 9.4, Immature Gran % (Auto) 0.20, Immature Gran # (Auto) 0.01, Neutrophils % 62.9, Lymphocytes % 22.7, Monocytes % 8.9, Eosinophils % 4.9 H, Basophils % 0.4, Nucleated RBC % 0.0, Neutrophils # 3.3, Lymphocytes # 1.20 L, Monocytes # 0.5, Eosinophils # 0.3, Absolute Basophils 0.0 02/04/21 16:57: PT 11.0 H, INR (Anticoag Therapy) 1.06, PTT (Billie) 24.5 05/12/21 16:57: Sodium 142, Plasma Sodium 142, Potassium 4.9 H, Chloride 105, Carbon Dioxide 28.0, Anion Gap 13.9 H, BUN 27 H, Creatinine 1.23, Est GFR (Non- Af Amer) 45 L, BUN/Creatinine Ratio 22.0 H, Random Glucose 95, Calcium 9.3, Calcium Adj for Albumin 8.8, Total Bilirubin 0.6, AST 70 H, ALT 110 H, Alkaline Phosphatase 113, Total Protein 7.9, Albumin 4.2 02/04/21 19:02: SARS-CoV-2 (PCR) Not detected Discharge Location: Home Disposition: Home self-care Condition: Good Face to Face Encounter completed per [facility] Guidelines: No Discharge Activity: Activity as tolerated Discharge Diet: General/regular food Referrals: Kely Luo ARNP [Primary Care Provider] - Prescriptions (Any new or edited meds): traMADol HCL [Ultram] 50 mg PO Q6H PRN #20 tab PRN Reason: Pain Transmission Status: Received by [facility] [place] Complete Home Medications List: Complete Home Medication List: Ascorbic Acid [Vitamin C] 1,000 mg PO DAILY 01/04/21 Calcium Carbonate [Calcium] 1,000 mg PO DAILY 01/04/21 Cholecalciferol [Vitamin D] 3,000 unit PO DAILY 01/04/21 Ferrous Sulfate [Iron] 325 mg PO DAILY 01/04/21 Meclizine HCl [Motion-Time] 25 mg PO TID 01/04/21 Midodrine HCl 5 mg PO TID 01/04/21 [place]-3S/Dha/Epa/Fish Oil [Fish Oil 1,200 mg Softgel] 1 ea PO HS 01/04/21 Sennosides [Senokot] 2 tab PO HS 01/04/21 Aspirin [Adult Aspirin Regimen] 81 mg PO DAILY #30 genaro. 01/09/21 Clopidogrel Bisulfate [Plavix] 75 mg PO DAILY #30 tab 01/09/21 Levothyroxine Sodium [Synthroid] 175 mcg PO DAILY@0700 #30 tab 01/09/21 Rosuvastatin Calcium [Crestor] 10 mg PO HS #30 tab 01/09/21 traMADol HCL [Ultram] 50 mg PO Q6H PRN #20 tab 02/05/21
[2021-02-05 13:26] VITALS: BP 130/39
== END 2021-02-05 14:20 | disposition home or self-care (01) ==
LOC: ER 14:57 → MS 14:57
PROVIDERS: ADMIT Family Medicine; ATTEND Family Medicine
DX: E03.9 Hypothyroidism, unspecified; S06.5X9A Traumatic subdural hemorrhage with loss of consciousness of unspecified duration, initial encounter; N18.30 Chronic kidney disease, stage 3 unspecified; R07.81 Pleurodynia; W19.XXXA Unspecified fall, initial encounter; I12.9 Hypertensive chronic kidney disease with stage 1 through stage 4 chronic kidney disease, or unspecified chronic kidney disease; Z86.73 Personal history of transient ischemic attack (TIA), and cerebral infarction without residual deficits; Z79.01 Long term (current) use of anticoagulants